=== PATIENT | male | born 1965 | race Caucasian/White ===

== ENCOUNTER 2023-03-01 07:14 | Outpatient (REF) | payer OTHER, SELFPAY ==
[2023-03-01 11:10] LABS: MANUAL DIFF FLAG NO
[2023-03-01 11:34] LABS: Basophils Absolute Auto 0.1 X10*3/uL (0.0-0.2); Basophils Percent Auto 1.4 % (0-2); Eosinophils Absolute Auto 0.1 X10*3/uL (0.0-0.4); Eosinophils Percent Auto 2.1 % (0-4); Hematocrit 42.1 % (42.0-52.0); Hemoglobin 13.7 g/dl (14.0-18.0); Imm Gran Abs Auto 0.03 X10*3/uL (0.00-0.03); Imm Gran Pct Auto 0.5 % (0.0-0.4); Lymphocytes Absolute Auto 2.1 X10*3/uL (1.2-4.9); Lymphocytes Percent Auto 36.1 % (20-40); Mean Corpuscular HGB Conc 32.5 g/dl (31.0-36.0); Mean Corpuscular Hemoglobin 29.2 pg (27.0-33.0); Mean Corpuscular Volume 89.8 fL (80.0-98.0); Mean Platelet Volume 10.4 fL (9.4-12.4); Monocytes Absolute Auto 0.6 X10*3/uL (0.1-1.2); Monocytes Percent Auto 10.7 % (2-11); Neutrophils Absolute Auto 2.8 x10*3/uL (2.0-8.3); Neutrophils Percent Auto 49.2 % (45-73); Platelet Count 172 X10*3/uL (160-400); Red Blood Count 4.69 X10*6/uL (4.60-5.80); Red Cell Distribution Width 11.9 % (11.0-16.0); White Blood Count 5.7 X10*3/uL (4.8-10.8)
[2023-03-01 11:51] LABS: Appearance Urine Clear; Color Urine Yellow; Glucose Urine UA Negative (Negative); Leukocyte Esterase Urine Negative (Negative); Nitrite Urine Negative (Negative); PH 5.5 (5.0-9.0); Urine Blood Negative (Negative); Urine Ketones Negative (Negative); Urine Protein Negative (Neg-Trace)
[2023-03-01 12:18] LABS: Alanine Aminotransferase 29 U/L (0-40); Albumin Level 4.1 g/dL (3.5-5.0); Alkaline Phosphatase 47 U/L (39-117); Anion Gap 9 (12-20); Aspartate Amino Transferase 23 U/L (5-37); Bilirubin Total 0.8 mg/dL (0.0-1.0); Blood Urea Nitrogen 16 mg/dL (9-16); Calcium 9.5 mg/dL (8.4-10.2); Carbon Dioxide 28 mmol/L (22-29); Chloride 108 mmol/L (96-108); Cholesterol 221 mg/dL; Estimated Glomerular Filt Rate > 60; Glucose Fasting 92 mg/dL (60-99); HDL Cholesterol 56 mg/dL; LDL Cholesterol Calculated 136 mg/dl; Potassium 4.1 mmol/L (3.3-5.1); Sodium 141 mmol/L (135-145); TSH reflex Free T4 2.12 uIU/mL (0.32-4.0); Total Protein 6.8 g/dL (6.5-8.0); Triglycerides 148 mg/dL
[2023-03-01 12:21] LABS: Prostate Specific Antigen Scr 0.55 ng/mL (<0.05-4.0)
[2023-03-01 12:37] LABS: Creatinine Urine 149.47 mg/dL
[2023-03-09 16:08] LABS: Testosterone, Total 262 ng/dL (250-1100)
== END 2023-03-01 07:15 | disposition home or self-care (01) ==
LOC: HO.WFDLDS 07:14
PROVIDERS: Visit Provider Family Medicine
DX: Z00.00 Encounter for general adult medical examination without abnormal findings (principal); Z12.5 Encounter for screening for malignant neoplasm of prostate; R68.82 Decreased libido; R79.89 Other specified abnormal findings of blood chemistry; I10 Essential (primary) hypertension
CPT/HCPCS: 36415; 80053; 80061; 81003; 82043; 84153; 84402; 84403; 84443; 85025

== ENCOUNTER 2023-04-12 14:21 | Outpatient (AMB) | payer OTHER, SELFPAY ==
--- NOTE | 2023-04-12 14:26 | A.OFFVIS_ITS ---
Intake Vital Signs 04/12/23 14:28 Height 5 ft 11 in Weight 211 lb 10.3 oz BMI 29.5 BP 112/62 Blood Pressure Location Lt brachial Position Sitting Pulse 83 Intake Visit Reasons: GERD, Colonoscopy Screening Intake Note: Ryland presents in the office as a new patient for GERD and colo screening. CC: Alternates through pepcid and omeprazole with occasional tums PRN. He gets acid reflux and it seems to be managed with his medications. [place] Required: No Allergies No Known Allergies [No Known Allergies*] Allergy (Unverified 02/15/23 15:12) Medication List - Last Reconciled 04/12/23 by Cathy Mcneil PA-C famotidine (Acid Felting Machine Operator Helper (famotidine)) 20 mg PO DAILY omeprazole 20 mg PO DAILY HPI HPI Comments History of Present Illness Details A 58 y/o male mother colon cancer @ 42 colonoscopy Q 5 years PPI and H2 kasey for GERD-years of combo tx- takes Tums a s well- at times- break through- Appetite good Bowels- ok- No cardiac or respiratory issues no N/V/D- abdominal pain PFSH Medical History GERD (gastroesophageal reflux disease) Pericarditis Right shoulder pain Surgical History History of orchiectomy Hx of colonoscopy Hx of tonsillectomy Family History Mother Colon cancer Maternal Aunt Celiac disease Other Other psychoactive substance abuse with psychoactive substance-induced mood disorder Social History Housing: House Patient Tobacco Use Status: Former Tobacco user e-Cigarette/Vaping Use: Never Used service: No Current occupational status: employed 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 Cognitive needs: No Hearing needs: No Vision needs: No Review of Systems Const All systems reviewed & are unremarkable except as noted in HPI and below Card Denies chest pain and Denies dyspnea Resp Denies dyspnea GI Denies abdominal pain, Denies hematochezia, Reports heartburn, Denies nausea and Denies vomiting Physical Exam Vital Signs: Last Vital Signs Pulse 83 04/12/23 14:28 BP 112/62 04/12/23 14:28 BMI result Body Mass Index 29.5 Const General: cooperative, healthy appearing and comfortable Orientation/consciousness: patient oriented x3 Limitations: no limitations Eyes Sclerae: sclerae normal Resp Effort & Inspection: normal respiratory effort and able to speak in complete sentences Auscultation: clear to auscultation bilaterally, no rales, no rhonchi and no wheezes Cardio Rate: regular rate Rhythm: regular rhythm Heart sounds: S1 normal heart sound present and S2 normal heart sound present GI Palpation (GI): Soft to palpation and nontender Auscultation: normal bowel sounds Skin General skin exam: no rashes or lesions noted Neuro General: patient oriented x3 Extrem General: Yes full ROM Psych Appearance: grossly normal and well kempt Mental Status: mental status grossly normal Speech and movement: Normal speech and movement present and Clear speech present Affect: normal affect Attitude: cooperative Thought process: Normal thought process present Thought content: Normal thought content present Insight: Good insight present (Psych) Judgement: Good judgement present (Psych) Assessment & Plan Assessment & Plan (1) Family history of colon cancer: Comment: Mother @ 42 Code(s): Z80.0 - Family history of malignant neoplasm of digestive organs (2) History of colon polyps: Comment: hx polyps- new to [facility] [place] Code(s): Z86.010 - Personal history of colonic polyps Plan: EGD/ colon (3) GERD (gastroesophageal reflux disease): Comment: persistent GERD- Recommend- Barretts surveillance-r/o PUD/ non ulcerdyspepsia- esophagitis- Code(s): K21.9 - Gastro-esophageal reflux disease without esophagitis Plan: EGD- Plan EGD/ colon- MG split prep Orders: Orders EGD/[place] Combo - GI Use Only Today K21.9 - Gastro-esophageal reflux disease without esophagitis, Z80.0 - Family history of malignant neoplasm of digestive organs, Z86.010 - Personal history of colonic polyps Medications: New bisacodyl (Dulcolax (bisacodyl)) Take 4 tablets by mouth at 12:00pm the day before your procedure. 20 mg (4 x 5 mg) PO ONCE 1 day 4 tabs 0RF colonoscopy prep Z12.11 - Encounter for screening for malignant neoplasm of colon polyethylene glycol 3350 (Miralax) Take as directed by mouth the day before your procedure. 238 grams PO ONCE 1 day PRN 238 grams 0RF laxative effect Patient Instructions: A 58 y/o male - agress to EGD/ colonoscopy- MG split prep Continue ppi/ H2 kasey Reflux precautions- reviewed Call with questions or concerns Appreciate the opportunity to assist in the care. Coding Level of Care Code New Pt Level 3 (57692) Diagnoses Family history of colon cancer Z80.0 History of colon polyps Z86.010 GERD (gastroesophageal reflux disease) K21.9 Time Spent (min) 25
[2023-04-12 14:28] VITALS: BP 112/62; PULSE 83; BMI 29.5
== END 2023-04-12 15:16 | disposition home or self-care (01) ==
PROVIDERS: PCP Family Medicine; Visit Provider Physician Assistant
DX: Z80.0 Family history of malignant neoplasm of digestive organs (principal); Z86.010 Personal history of colon polyps; K21.9 Gastro-esophageal reflux disease without esophagitis
CPT/HCPCS: 99203

== ENCOUNTER → 2023-04-12 14:21 | Outpatient (BNVA) | payer OTHER, SELFPAY | PROVIDERS: PCP Family Medicine; Visit Provider Physician Assistant ==

== ENCOUNTER 2023-05-03 13:51 | Outpatient (AMB) | payer OTHER, SELFPAY ==
[2023-05-03 13:57] VITALS: BP 112/68; PULSE 84; RESP 13; TEMP 37.1; O2SAT 98; BMI 30.3
--- NOTE | 2023-05-03 13:57 | A.OFFPC_ITS ---
Vital Signs 05/03/23 13:57 Height 5 ft 11 in Weight 217 lb BMI 30.3 BP 112/68 Blood Pressure Location Lt brachial Position Sitting Respiration 13 Pulse 84 Pulse Source Pulse Oximeter Temp 98.7 F Temp Source Temporal Artery Scan Pulse Oximetry (%) 98 Oxygen Delivery Method Room Air Intake Visit Reasons: CPE with f/u labs and health maintenance Intake Note: Patient reports he has no concerns. 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 Labs were drawn at 03/01/23. Reviewed labs with pt. Mildly low Hgb at 13.7. Triglycerides 148. TC 221. LDL 136. HDL 56. Hx of orchiectomy and pt reports he has been concerned about fatigue. Pt reports hearing changes L ear. Pt reports hx of smoking. He also reports he has a hx of TB exposure. Pt reports he does get occasional rashes. 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 Cognitive needs: No Hearing needs: No Vision needs: No Review of Systems Const Denies chills, Denies fatigue, Denies fever(s), Denies headache(s) and Denies weakness Eyes Denies change in vision ENT Denies dizziness, Denies headache(s), Denies hearing loss, Denies nasal congestion, Denies sinus pain, Denies sinus pressure and Denies sore throat Card Denies chest pain, Denies lightheadedness, Denies dyspnea and Denies other (palpitations) Resp Denies cough, Denies dyspnea and Denies wheezing GI Denies abdominal pain, Denies melena, Denies hematochezia, Denies change in bowel habits, Denies dyspepsia and Denies nausea Denies hematuria and Denies dysuria Musc Denies abnormal gait, Denies myalgias, Denies arthralgias, Denies numbness and Denies tingling Skin/Breast Reports rash, Denies unusual bruising and Denies wounds Neuro Denies abnormal gait, Denies dizziness, Denies headache(s), Denies memory loss, Denies numbness, Denies Sensory deficit (Neuro), Denies tingling and Denies weakness Psych Denies anxiety, Denies depression and Denies memory loss Endo Denies cold intolerance, Denies fatigue, Denies heat intolerance, Denies polydipsia and Denies polyuria Matias/Lymph Denies easy bleeding and Denies easy bruising Aller/Immun Denies wheezing Physical exam (Primary Care) Vital Signs: Last Vital Signs Temp 98.7 F 05/03/23 13:57 Pulse 84 05/03/23 13:57 Resp 13 05/03/23 13:57 BP 112/68 05/03/23 13:57 Pulse Ox 98 05/03/23 13:57 Oxygen Delivery Method Room Air 05/03/23 13:57 BMI result Body Mass Index 30.3 Tobacco/Smoking Status: Tobacco use Status Tobacco use date assessed 02/15/23 05/03/23 13:59 Patient Tobacco Use Status Former Tobacco user 05/03/23 13:59 e-Cigarette/Vaping Use Never Used 05/03/23 13:59 Const General: no acute distress, well developed, alert and awake Nutritional Appearance: well nourished Orientation/consciousness: patient oriented x3 HENMT Head: Yes normocephalic and Yes atraumatic Ears: hearing grossly normal bilaterally and TM's normal bilaterally General nose exam: Normal external nose present and Normal nares present Mouth: Normal oral and palatal mucosa present and moist mucous membranes Teeth and gingiva: dentition normal Throat: Yes posterior oropharynx normal Eyes General: appearance normal, both eyes and all related structures Pupils: Equal, round and reactive pupils present and Pupil accommodation reflex normal EOM: EOMs intact bilaterally Neck Neck: Yes normal visual inspection, Yes no lymphadenopathy and Yes trachea midline Thyroid: Thyroid normal Carotids: no bruits Lymphatic: no lymphadenopathy noted Chest Chest palpation & inspection: normal inspection of the chest Resp Other: Clear but coarse breath sounds Effort & Inspection: normal respiratory effort Auscultation: clear to auscultation bilaterally Cardio Rate: regular rate Rhythm: regular rhythm Heart sounds: S1 normal heart sound present, S2 normal heart sound present, no gallops, no murmurs and no rubs Bruits: no abdominal aortic bruits and no carotid bruits GI Palpation (GI): No Abdominal aortic bruit present, Soft to palpation, nontender, No hepatosplenomegaly present and No Rebound tenderness present Auscultation: normal bowel sounds General: Yes no CVA tenderness Back/Spine/Pelvis Back: no CVA tenderness Cervical Spine: cervical ROM normal and No Cervical spine tenderness Thoracic/Lumbar Spine: thoraco-lumbar ROM normal, No pain with thoraco-lumbar ROM, No thoracic spinal tenderness and No lumbar spinal tenderness Skin Lesions: no lesions Rashes: no rashes Trauma: no lacerations or abrasions Wounds: no wounds Nails: normal Neuro General: patient oriented x3 Cranial nerves: Yes Equal, round and reactive pupils present Cognition (Neuro): normal cognition Gait exam (Neuro): Normal gait present Motor exam (neuro): 5/5 motor strength present throughout Sensory Exam: No Sensory deficit (Neuro) Deep tendon reflexes (DTR's): Right patellar reflex intensity grade: 2+ and Left patellar reflex intensity grade: 2+ Extrem General: Yes normal to inspection and No edema Psych Appearance: grossly normal Affect: normal affect Attitude: cooperative Thought process: Normal thought process present Assessment and Plan Assessment & Plan (1) Adult general medical exam: Code(s): Z00.00 - Encounter for general adult medical examination without abnormal findings Plan: 58-year-old male presents for complete physical exam Encouraged healthy diet with active lifestyle and plenty of exercise (2) Elevated LDL cholesterol level: Code(s): E78.00 - Pure hypercholesterolemia, unspecified Plan: Mildly elevated LDL cholesterol but HDL ratios are good Encouraged a diet lower in saturated fats and cholesterol No medication needed at this time (3) Borderline anemia: Code(s): D64.9 - Anemia, unspecified Plan: Improved from prior lab work He had had complaints fatigue and I do not feel that this would explain any fatigue. We can follow (4) Sleep apnea: Code(s): G47.30 - Sleep apnea, unspecified Plan: Patient notes daytime sleepiness/fatigue and snoring/gasping with apneic events witnessed by his Referred to Sleep Medicine (5) Fatigue: Code(s): R53.83 - Other fatigue Plan: This is likely due to poor sleep and sleep apnea He is referred to Sleep Medicine (6) Unilateral hearing loss: Code(s): H91.90 - Unspecified hearing loss, unspecified ear Plan: Mild decrease and hearing at left ear Declines audiology testing for now He will let me know if he has any changes (7) History of smoking: Code(s): Z87.891 - Personal history of nicotine dependence Plan: Distant history. No longer smoking (8) History of latent tuberculosis: Code(s): Z86.15 - Personal history of latent tuberculosis infection Plan: History of latent tuberculosis and treatment was completed. Will check chest x-ray He had also had a COVID infection and has coarse breath sounds, possible scarring. As above, checking chest x-ray (9) Screening for prostate cancer: Code(s): Z12.5 - Encounter for screening for malignant neoplasm of prostate Plan: PSA was within normal limits (10) Encounter for screening for malignant neoplasm of colon: Code(s): Z12.11 - Encounter for screening for malignant neoplasm of colon Plan: He has seen gastroenterology but has not heard back from them yet for procedure Asked him to call Gastroenterology again (11) Rash: Code(s): R21 - Rash and other nonspecific skin eruption Plan: Patient notes that he gets an intermittent rash which lasts only minutes to hours No current rash Asked him to take pictures of this rash and also try to come in during flare up of rash. Also suggested symptoms diary Orders: Orders XR chest 2V Today Z86.15 - Personal history of latent tuberculosis infection, Z87.891 - Personal history of nicotine dependence Referrals Sleep Medicine Referral G47.30 - Sleep apnea, unspecified, R53.83 - Other fatigue Coding Level of Care Code Est Pt Level 3 (62175) Est Pt Prev Care 40-64y(30559) Diagnoses Adult general medical exam Z00.00 Elevated LDL cholesterol level E78.00 Borderline anemia D64.9 Sleep apnea G47.30 Fatigue R53.83 Unilateral hearing loss H91.90 History of smoking Z87.891 History of latent tuberculosis Z86.15 Screening for prostate cancer Z12.5 Encounter for screening for malignant neoplasm of colon Z12.11 Rash R21
== END 2023-05-03 14:58 | disposition home or self-care (01) ==
PROVIDERS: PCP Family Medicine; Visit Provider Family Medicine
DX: Z00.00 Encounter for general adult medical examination without abnormal findings (principal); E78.00 Pure hypercholesterolemia, unspecified; D64.9 Anemia, unspecified; Z87.891 Personal history of nicotine dependence; G47.30 Sleep apnea, unspecified; R53.83 Other fatigue; H91.92 Unspecified hearing loss, left ear; R21 Rash and other nonspecific skin eruption
CPT/HCPCS: 99396

== ENCOUNTER 2023-06-05 15:31 | Outpatient (REF) | payer OTHER, SELFPAY ==
--- NOTE | ~2023-06-05 | XR_ITS ---
EXAMINATION: XR CHEST CLINICAL INFORMATION: Reason for Exam Z86.15 - Personal history of latent tuberculosis infection COMPARISON: Chest radiograph 06/17/2020 TECHNIQUE: 2 views of the chest FINDINGS: Lines and tubes: None. Clear lungs. No pleural effusion. No pneumothorax. Normal cardiomediastinal silhouette. XR/XR chest 2V IMPRESSION: * Clear lungs.
== END 2023-06-05 15:32 | disposition home or self-care (01) ==
LOC: HO.XRAY 15:31
PROVIDERS: PCP Family Medicine; Visit Provider Family Medicine
DX: Z86.15 Personal history of latent tuberculosis infection (principal); Z87.891 Personal history of nicotine dependence
CPT/HCPCS: 71046

== ENCOUNTER 2023-06-12 14:41 | Outpatient (AMB) | payer OTHER, SELFPAY ==
--- NOTE | 2023-06-12 14:39 | MHC.PC.OV ---
Intake Visit Reasons: f/u CPE-labs Intake Note: Patient is ready for his telehealth appointment. Officer Captain Required: No Accompanied by: Self / Same As Patient Allergies No Known Allergies [No Known Allergies*] Allergy (Verified 06/12/23 14:41) Tobacco use date assessed: 02/15/23 HPI f/u CPE-labs HPI Details 58 y/o male presents to f/u chest x-ray. Distant history of smoking but more recent history of latent TB infection and completed treatment. More recently still, he had a COVID infection with some ongoing symptoms and coarse breath sounds. Chest x-ray 06/05/23 was normal. He has a colonoscopy scheduled in June. Pt reports R shoulder pain and states he has recently exacerbated pain by raking. 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 Cognitive needs: No Hearing needs: No Vision needs: No Review of Systems Const Denies chills, Denies fatigue, Denies fever(s), Denies headache(s) and Denies weakness ENT Denies dizziness and Denies headache(s) Card Denies dyspnea Resp Denies cough, Denies dyspnea, Denies wheezing and Denies other (shortness of breath) Musc Denies numbness and Denies tingling Neuro Denies dizziness, Denies headache(s), Denies numbness, Denies tingling and Denies weakness Psych Denies anxiety and Denies depression Endo Denies fatigue Aller/Immun Denies wheezing Physical exam (Primary Care) Tobacco/Smoking Status: Tobacco use Status Tobacco use date assessed 02/15/23 06/12/23 14:41 Patient Tobacco Use Status Former Tobacco user 06/12/23 14:41 e-Cigarette/Vaping Use Never Used 06/12/23 14:41 Telehealth Telehealth Location of provider rendering services: practice address Location of patient: address on file Patient Identification confirmed using: Name, : Yes Telehealth method: voice only Patient verbally consented to treatment: Yes Patient verbally consented to billing insurance company: Yes Patient informed of any privacy concerns related to visit: Yes Minutes spent on Phone/Video with Pt.: 12 Assessment and Plan Assessment & Plan (1) History of latent tuberculosis: Code(s): Z86.15 - Personal history of latent tuberculosis infection Plan: History?of?tuberculosis?and?fairly?recent?COVID?infection.??Patient?had?had?coarse?breath?sounds?on?exam Chest?x-ray?clear.??Patient?is?breathing?well. (2) History of smoking: Code(s): Z87.891 - Personal history of nicotine dependence Plan: As?above,?chest?x-ray?is?clear (3) Right shoulder pain: Code(s): M25.511 - Pain in right shoulder Plan: Moderately?severe?right?shoulder?pain. Patient?requests?referral?to?Ortho?which?is?made. (4) Sleep apnea: Code(s): G47.30 - Sleep apnea, unspecified Plan: Patient?is?concerned?about?the?cost?of?his?appointments?and?would?like?to?reschedule?for?after?August. He?will?call?neuro?to?reschedule?his?sleep?medicine?studies I?advised?him?to?sleep?on?his?side?and?let?me?know?if?things?are?worsening (5) GERD (gastroesophageal reflux disease): Comment: persistent GERD- Recommend- Barretts surveillance-r/o PUD/ non ulcerdyspepsia- esophagitis- Code(s): K21.9 - Gastro-esophageal reflux disease without esophagitis Plan: He?has?endoscopies?scheduled?with?GI?but?is?having?difficulty?getting?this?paid?for?by?his?insurance.??He?will?reschedule?this?to?after?August?. Orders: Referrals Orthopedics Referral M25.511 - Pain in right shoulder Medications: New meloxicam 15 mg PO DAILY 30 tabs 2RF 30 days Coding Level of Care Code Tele Est Pt Level 2 (87773) Diagnoses History of latent tuberculosis Z86.15 History of smoking Z87.891 Right shoulder pain M25.511 Sleep apnea G47.30 GERD (gastroesophageal reflux disease) K21.9
== END 2023-06-12 14:45 | disposition home or self-care (01) ==
PROVIDERS: PCP Family Medicine; Visit Provider Family Medicine
DX: Z86.15 Personal history of latent tuberculosis infection (principal); Z87.891 Personal history of nicotine dependence; M25.511 Pain in right shoulder; G47.30 Sleep apnea, unspecified; K21.9 Gastro-esophageal reflux disease without esophagitis
CPT/HCPCS: 99442

== ENCOUNTER 2023-06-28 08:54 | Outpatient (AMB) | payer OTHER, SELFPAY ==
--- NOTE | 2023-06-28 08:56 | MHC.OFFVIS ---
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 The patient states that he has had intermittent pain in his right shoulder for the last several years. 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 He also played a fair amount of softball when he was younger. He 1st aggravated his right shoulder approximately 20 years ago while jumping on a trampoline with his 2-year-old daughter. He reports mild weakness when lifting his right hand above shoulder height. Allergies No Known Allergies [No Known Allergies*] Allergy (Verified 06/12/23 14:41) Medication List - Last Reconciled 06/28/23 by Grant Lebron MD bisacodyl (Dulcolax (bisacodyl)) 20 mg (4 x 5 mg) PO ONCE 1 day famotidine (Acid Physical Chemistry Teacher (famotidine)) 20 mg PO DAILY meloxicam 15 mg PO DAILY 30 days omeprazole 20 mg PO DAILY polyethylene glycol 3350 (Miralax) 238 grams PO ONCE PRN 1 day PFS Medical History GERD (gastroesophageal reflux disease) Pericarditis Right shoulder pain Surgical History History of orchiectomy Hx of colonoscopy Hx of tonsillectomy Family History Mother Colon cancer Maternal Aunt Celiac disease Other Other psychoactive substance abuse with psychoactive substance-induced mood disorder Social History Housing: House Patient Tobacco Use Status: Former Tobacco user e-Cigarette/Vaping Use: Never Used service: No Current occupational status: employed 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 Cognitive needs: No Hearing needs: No Vision needs: No Physical Exam Const Other: Well-nourished well-developed very friendly male awake alert and oriented x3 in no acute distress Extrem Other: Bilateral upper extremity examination shows good capillary refill, no skin lesions noted, normal sensation light touch Right shoulder examination shows decreased range of motion when compared to his left shoulder, 4/5 strength with supraspinatus testing, positive impingement signs, tenderness over his acromioclavicular joint, no instability Results Reviewed Results Reviewed: X-rays of the patient's right shoulder show severe acromioclavicular joint narrowing, a type 2 acromion, no acute bony abnormalities Assessment & Plan Assessment & Plan (1) Right shoulder pain: Code(s): M25.511 - Pain in right shoulder Plan: Mr. Lynch presents with complaints of progressively worsening right shoulder pain. (2) Impingement of right shoulder: Code(s): M25.811 - Other specified joint disorders, right shoulder Plan Mr. Lynch presents with right shoulder pain due to impingement syndrome and rotator cuff tendinosis. I had a lengthy discussion with the patient regarding the treatment options. We will hold off on an MRI or cortisone injection for now. I did give him a prescription to go to formal physical therapy where he works at [employer]. The do's and don'ts of lifting were discussed at length with the patient. He will follow up with me on an as-needed basis should his symptoms not plateau at an unacceptable level over the next few months. If his weakness does worsen in the future I will order an MRI to evaluate the status of his rotator cuff tendons. Feel free to call me at any time should questions regarding his orthopedic management arise. I spent 22 minutes in reviewing the patient's records and imaging studies, seeing the patient and documenting in the medical record. Orders: Orders XR shoulder RT min 2V Today M25.511 - Pain in right shoulder PT Evaluation and Treatment Today M25.811 - Other specified joint disorders, right shoulder Coding Level of Care Code New Pt Level 2 (72136) Diagnoses Right shoulder pain M25.511 Impingement of right shoulder M25.811
== END 2023-06-28 09:28 | disposition home or self-care (01) ==
PROVIDERS: PCP Family Medicine; Visit Provider Orthopaedic Surgery
DX: M25.511 Pain in right shoulder (principal); M25.811 Other specified joint disorders, right shoulder
CPT/HCPCS: 99202

== ENCOUNTER 2023-06-28 11:53 | Outpatient (REF) | payer OTHER, SELFPAY ==
--- NOTE | ~2023-06-28 | XR_ITS ---
EXAMINATION: XR SHOULDER, RIGHT CLINICAL INFORMATION: Pain right shoulder COMPARISON: None available. TECHNIQUE: AP and transscapular Y views of the right shoulder. FINDINGS: Mild degenerative changes in the acromioclavicular joint with joint space narrowing and hypertrophic change. Degenerative changes with hypertrophic change along the glenoid. No abnormal soft tissue calcifications identified adjacent to the humeral head. Glenohumeral alignment is maintained. XR/XR shoulder RT min 2V IMPRESSION: Mild degenerative changes in the acromioclavicular joint.
== END 2023-06-28 11:54 | disposition home or self-care (01) ==
LOC: HO.HOSX 11:53
PROVIDERS: Visit Provider Orthopaedic Surgery
DX: M25.811 Other specified joint disorders, right shoulder (principal)
CPT/HCPCS: 73030

== ENCOUNTER 2023-08-30 07:32 | Day surgery (SDC) | payer OTHER, SELFPAY ==
[2023-08-27 14:43] VITALS: BMI 29.4
--- NOTE | 2023-08-29 09:03 | P.CONAN_ITS ---
Documented by User: Lula Kong NP 08/29/23 09:05 HPI - Anesthesia Eval Consult details Narrative: 58yo M for Upper Endoscopy and Colonoscopy PMF Active Problems Active Problems: All Active Problems (Updated 08/27/23 @ 14:41 by Ritu Bustillos RN) Impingement of right shoulder (Acute) Right shoulder pain (Acute) Rash (Acute) History of latent tuberculosis (Acute) Exposure to TB (Acute) History of smoking (Acute) Unilateral hearing loss (Acute) Sleep apnea (Acute) Fatigue (Acute) Borderline anemia (Acute) Screening for prostate cancer (Acute) Encounter for screening for malignant neoplasm of colon (Acute) Adult general medical exam (Acute) Elevated LDL cholesterol level (Acute) Family history of colon cancer (Acute) Low testosterone (Acute) Low libido (Acute) History of colon polyps (Acute) Laboratory exam ordered as part of routine general medical examination (Acute) Right shoulder pain (Acute) GERD (gastroesophageal reflux disease) (Acute) Past Medical History Medical History Borderline anemia Latent tuberculosis COVID-19 Sleep apnea Right shoulder pain GERD (gastroesophageal reflux disease) Family History Family History Mother Colon cancer Maternal Aunt Celiac disease Other Other psychoactive substance abuse with psychoactive substance-induced mood disorder Surgical History Surgical History History of esophagogastroduodenoscopy (EGD) Hx of colonoscopy History of orchiectomy Hx of tonsillectomy Social History Social History Housing: House Patient Tobacco Use Status: Former Tobacco user Quit Date: very young e-Cigarette/Vaping Use: Never Used Use of substances other than those prescribed or required for medical reasons: No Are you DNR?: No Advance Directives: No Advance Directives Information Provided: Yes service: No Current occupational status: employed 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 Clear lungs. No pleural effusion. No pneumothorax. Normal cardiomediastinal silhouette. Assessment and Plan Assessment Anesthesia Assessment: Chart Reviewed Documented by User: Tara Landis MD 08/30/23 09:09 PMFSH Past Medical History Medical History Borderline anemia Latent tuberculosis COVID-19 Sleep apnea Right shoulder pain GERD (gastroesophageal reflux disease) Family History Family History Mother Colon cancer Maternal Aunt Celiac disease Other Other psychoactive substance abuse with psychoactive substance-induced mood disorder Surgical History Surgical History History of esophagogastroduodenoscopy (EGD) Hx of colonoscopy History of orchiectomy Hx of tonsillectomy History of Problems with Anesthesia: No Social History Social History Housing: House Patient Tobacco Use Status: Former Tobacco user Quit Date: very young e-Cigarette/Vaping Use: Never Used Use of substances other than those prescribed or required for medical reasons: No Are you DNR?: No Advance Directives: No Advance Directives Information Provided: Yes service: No Current occupational status: employed 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 Cognitive needs: No Hearing needs: No Vision needs: No Meds Allergies Allergy/AdvReac Type Severity Reaction Status Date / Time No Known Allergies Allergy Verified 08/30/23 08:04 [No Known Allergies*] Home Medications Medication Instructions Recorded Confirmed Last Taken Type famotidine 20 mg tablet (Acid 20 mg PO DAILY 02/15/23 08/27/23 Unknown History Forming And Assembling Supervisor (famotidine)) omeprazole 20 mg capsule,delayed 20 mg PO DAILY 02/15/23 08/27/23 Unknown History release meloxicam 15 mg tablet 15 mg PO DAILY PRN Pain 08/30/23 Unknown History Exam Airway Mallampati Class: III TM Dist: >3cm Neck ROM: Full Loose/Missing/Broken Teeth: Yes, Upper and Lower Heart: RRR Lungs: CTA Assessment and Plan Assessment Anesthesia Assessment: Anesthesia Plan Discussed Final Anesthetic Review History of Problems with Anesthesia: No NPO: Yes ASA Class: III Final Preanesthetic Review: Meds/Allgs Chart Reviewed, Consent Obtained/Reviewed and Anes Risks/Benef Reviewed Patient Risk: Intermediate Procedure Risk: Intermediate Anesthetic Plan Anesthetic Plan: MAC: Disposition: Standard PACU
[2023-08-30 08:06] VITALS: BMI 30.5
[2023-08-30 08:11] VITALS: BP 118/78; PULSE 74; RESP 15; TEMP 36.6; O2SAT 96
[2023-08-30] MEDS: Lactated Ringers 1,000 ML 100 ML IVCONT (08:35)
--- NOTE | 2023-08-30 08:47 | MHC.SHP ---
Pre-Procedural Eval Section A Date of Service: 08/30/23 Section B Chief Complaint: Gastro-esophageal reflux disease without esophagit Details of Present Illness: Fh of CRC Relevant Family History (Specify if Yes): Yes Relevant Social History: None Present Medications: see Short Stay Collaborative assessment Medical History: Significant History (GERD (gastroesophageal reflux disease) Pericarditis Right shoulder pain) History of Previous Operations: Relevant previous surgery/procedure and date(s) (history of orchiectomy Hx of colonoscopy Hx of tonsillectomy) Allergies: Allergies Allergy/AdvReac Type Severity Reaction Status Date / Time No Known Allergies Allergy Verified 08/30/23 08:04 [No Known Allergies*] Review of Systems Sugical H&P ROS: Negative: Constitution, Cardiovascular, Respiratory, Neurological, Psychiatric, Hem-Onc, Allergic/Immunologic, Gastrointestinal, Genitourinary, Musculoskeletal, Integumentary, Endocrine and Eyes/Ears/Nose/Throat Exam Surgical H&P Exam: Normal: HEENT, Normal: Heart, Normal: Lungs, Normal: Extremities, Normal: Abdomen, Normal: Skin and Normal: Neurological Plan Diagnosis/Plan: Unchanged I have reviewed the history and physical and performed a pertinent physical examination on my patient. No changes have occurred unless specified. Time Spent With Patient Time: Total time managing care of this patient today ____ minutes.
--- NOTE | 2023-08-30 09:01 | P.OP_ITS ---
Operative Note Operative Note Date of Service: 08/30/23 Narrative: Operative Information Procedure Description: EGD, Colonoscopy Indication: GERD, colon screening-FH of CRC Anesthesia: MAC FLEXIBLE TRANSORAL UPPER GASTROINTESTINAL ENDOSCOPY AND COLONOSCOPY PROCEDURE NOTE UPPER ENDOSCOPY Consent: Indications for the procedure and potential complications of bleeding, perforation, reaction to medications and missed diagnosis were discussed with the patient and informed consent was obtained. Instrument: Olympus GIF H 190 J mid size upper endoscope Monitoring: Vital signs and clinical assessment, continuous EKG monitoring, Pulse oximetry, Carbon Dioxide monitoring and blood pressure monitoring were done throughout the procedure. Procedure: The patient was placed in the left lateral decubitis position and pre-procedure medications were administered and a bite block was placed. The endoscope was inserted into the mouth and advanced under direct vision to the third part of duodenum. A careful inspection was made as the upper endoscope was withdrawn including a retroflexed examination of the proximal stomach; Findings and interventions are described below. Findings: Larynx:normal Esophagus: GE junction at 40 cm, diaphragm hiatus at 43 cm, sliding hiatal hernia, with abn edematous mucosa, and erythema, friability at the GEJ with linear erosions and possible barretts esophagus. The LES was very lax, after passing the scope there was an area of continuous oozing and a clip was applied, Bx were taken from GEJ, distal and proximal esophagus. Small inlet patch was noted. Stomach: Slight swelling and erythema at antrum. Biopsies were obtained. Grade 2 flap valve on retroflexed examination of the cardia. Duodenum: Normal bulb and descending duodenum, Intervention: Biopsies as noted above, Brushings, clip placement COLONOSCOPY Instrument: Olympus variable stiffness pediatric scope 190L Colonoscopy Monitoring: Vital signs and clinical assessment, continuous EKG monitoring, Pulse oximetry, Carbon Dioxide monitoring and blood pressure monitoring were done throughout the procedure. Colon withdrawal time was 18 minutes. Procedure: The patient was placed in the left lateral decubitis position and pre-procedure medications were administered. After a digital rectal examination of the ano-rectum, the video colonoscope was inserted into the rectum and advanced through the colon to the cecum/TI. The colonoscope was slowly withdrawn in a retrograde panoramic fashion and the colon mucosa was carefully examined including a retroflexed view of the rectum. Findings and interventions are described below. Procedure Difficulty: easy Findings: Terminal Ileum-normal Cecum:normal Right sided retroflexion: 8-10 mm sessile polyp noted and removed with cold snare Ascending Colon: normal Transverse Colon -normal Descending Colon:normal Sigmoid Colon:moderate diverticulosis, 10-12 mm sessile polyp removed with cold snare Rectum: Retroflexion with small internal hemorrhoids, grade I Anorectum - normal Colon preparation: [place] Bowel Preparation Scale Right colon; 2 Transverse colon: 3 Left colon; 3 (0 = Unprepared colon segment with mucosa not seen due to solid stool that cannot be cleared. 1 = Portion of mucosa of the colon segment seen, but other areas of the colon segment not well seen due to staining, residual stool and/or opaque liquid. 2 = Minor amount of residual staining, small fragments of stool and/or opaque liquid, but mucosa of colon segment seen well. 3 = Entire mucosa of colon segment seen well with no residual staining, small fragments of stool or opaque liquid) Impression and Post Procedure Diagnosis: Endoscopy Findings: esophagitis lax LES possible Barretts gastritis esophageal inlet patch Colonoscopy Findings: polyps internal hemorrhoids diverticular disease Plan: Await Pathology results Repeat Colonoscopy in 5 years due to polyps or earlier if clinically indicated High fiber diet leaflet avoid straining at stool, epsom salts and sitz bath, anusol supps or cream GERD precautions, PPI compliance, consider increasing dose, avoid nsaids Above findings were reviewed with the patient and relevant handouts were provided if indicated.
[2023-08-30 09:42] VITALS: BP 114/77; PULSE 79; RESP 18; TEMP 36.3; O2SAT 99
[2023-08-30 09:57] VITALS: BP 113/86; PULSE 79; RESP 18; O2SAT 98
[2023-08-30 10:12] VITALS: BP 125/83; PULSE 75; RESP 18; TEMP 36.6; O2SAT 98
== END 2023-08-30 10:50 | disposition home or self-care (01) ==
PROVIDERS: Visit Provider Internal Medicine Gastroenterology
PROC: (CPT 45385; principal; 2023-08-30 09:20)
DX: Z12.11 Encounter for screening for malignant neoplasm of colon (principal); Z80.0 Family history of malignant neoplasm of digestive organs; D12.2 Benign neoplasm of ascending colon; D12.5 Benign neoplasm of sigmoid colon; K57.30 Diverticulosis of large intestine without perforation or abscess without bleeding; K64.0 First degree hemorrhoids; K21.9 Gastro-esophageal reflux disease without esophagitis; K20.80 Other esophagitis without bleeding; K29.50 Unspecified chronic gastritis without bleeding; K44.9 Diaphragmatic hernia without obstruction or gangrene; K22.4 Dyskinesia of esophagus; Q39.8 Other congenital malformations of esophagus
CPT/HCPCS: 45385; 43239; 88305; 88342; J2704

== ENCOUNTER → 2023-08-30 07:32 | Outpatient (BNV) | payer OTHER, SELFPAY | PROVIDERS: Visit Provider Internal Medicine Gastroenterology | DX: Z12.11 Encounter for screening for malignant neoplasm of colon (principal); Z80.0 Family history of malignant neoplasm of digestive organs; D12.5 Benign neoplasm of sigmoid colon; K64.0 First degree hemorrhoids; K21.00 Gastro-esophageal reflux disease with esophagitis, without bleeding; K22.4 Dyskinesia of esophagus; K29.70 Gastritis, unspecified, without bleeding | CPT/HCPCS: 43239; 43255; 45385 ==

== ENCOUNTER 2023-09-05 15:04 | Outpatient (AMB) | payer OTHER, SELFPAY ==
--- NOTE | 2023-09-05 15:06 | A.OFFVIS_ITS ---
Intake Vital Signs 09/05/23 15:09 Height 5 ft 11 in Weight 208 lb BMI 29.0 Intake Visit Reasons: ov- Rt Shoulder pain Intake Note: Ryland is a 58 yr old male presents with complaints of right shoulder pain and weakness. The patient states that he has been going to formal physical therapy which has helped with his range of motion but not his pain. The patient states that he has had intermittent pain in his right shoulder for the last several years. 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 He also played a fair amount of softball when he was younger. He 1st aggravated his right shoulder approximately 20 years ago while jumping on a trampoline with his 2-year-old daughter. He has weakness when lifting his right hand above shoulder height. Allergies No Known Allergies [No Known Allergies*] Allergy (Verified 09/05/23 15:10) Medication List - Last Reconciled 09/05/23 by Grant Lebron MD famotidine (Acid Car Washer (famotidine)) 20 mg PO DAILY meloxicam 15 mg PO DAILY PRN omeprazole 20 mg PO DAILY PFSH Medical History Borderline anemia Latent tuberculosis COVID-19 Sleep apnea Right shoulder pain GERD (gastroesophageal reflux disease) Surgical History History of esophagogastroduodenoscopy (EGD) Hx of colonoscopy History of orchiectomy Hx of tonsillectomy Family History Mother Colon cancer Maternal Aunt Celiac disease Other Other psychoactive substance abuse with psychoactive substance-induced mood disorder Social History Housing: House Patient Tobacco Use Status: Former Tobacco user Quit Date: very young e-Cigarette/Vaping Use: Never Used service: No Current occupational status: employed 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 Cognitive needs: No Hearing needs: No Vision needs: No Physical Exam Vital Signs: BMI result Body Mass Index 29.0 Const Other: Well-nourished well-developed very friendly male awake alert and oriented x3 in no acute distress Extrem Other: Bilateral upper extremity examination shows good capillary refill, no skin lesions noted, normal sensation light touch Right shoulder examination shows slightly decreased range of motion when compared to his left shoulder, 4+ out of 5 strength with supraspinatus testing, positive impingement signs, tenderness over his acromioclavicular joint, no instability Results Reviewed Results Reviewed: X-rays of the patient's right shoulder show severe acromioclavicular joint narrowing, a type 2 acromion, no acute bony abnormalities Assessment & Plan Assessment & Plan (1) Right shoulder pain: Code(s): M25.511 - Pain in right shoulder Plan Mr. Lynch presents with right shoulder pain and weakness due to impingement syndrome well as possible rotator cuff tearing. Thus, I will send the patient for an MRI of his right shoulder to further evaluate the status of his rotator cuff tendons. If he does have a full-thickness tear I will recommend surgical repair to optimize his future functional level. I will see the patient back once the MRI is completed to discuss the findings and treatment options. Feel free to call me at any time should questions regarding his orthopedic management arise. I spent 20 minutes in reviewing the patient's records and imaging studies, seeing the patient and documenting in the medical record. Orders: Orders MR shoulder RT wo con Today M25.511 - Pain in right shoulder Coding Level of Care Code Est Pt Level 2 (74369) Diagnoses Right shoulder pain M25.511
[2023-09-05 15:09] VITALS: BMI 29.0
== END 2023-09-05 15:37 | disposition home or self-care (01) ==
PROVIDERS: PCP Family Medicine; Visit Provider Orthopaedic Surgery
DX: M75.41 Impingement syndrome of right shoulder (principal)
CPT/HCPCS: 99213

== ENCOUNTER → 2023-09-05 15:04 | Outpatient (BNVA) | payer OTHER, SELFPAY | PROVIDERS: PCP Family Medicine; Visit Provider Orthopaedic Surgery ==

== ENCOUNTER 2023-10-05 14:29 | Outpatient (AMB) | payer OTHER, SELFPAY ==
--- NOTE | 2023-10-05 14:30 | A.OFFVIS_ITS ---
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 Wakes up sometimes at night and snores Allergies No Known Allergies [No Known Allergies*] Allergy (Verified 10/05/23 14:34) HPI HPI Comments History of Present Illness Details 58 y/o male patient presents for new in- person visit for sleep consultation. Pt reports loud snoring, witnessed apnea spells. Pt experiences excessive daytime tiredness, fatigue, he can fall asleep very easily. He feels very fatigue usually after work. and it has been more progressed than usual lately. Sleep questionnaire: Have you ever been diagnosed with a sleep disorder? No. Have you ever had a sleep study in the past? No. Have you ever been treated for a sleep disorder? No. Do you take medications for a sleep disorder? Advil and Tylenol PM sometimes for arthritis. Do you snore? Yes. Do you wake up gasping at night? No. Do you have episodes of apneas? No. If yes, are they witnessed? No. Do you have episodes of nocturnal chest pain or dyspnea? No. Do you have difficulty initiating sleep? No. Do you have difficulty maintaining sleep? Yes. Do you wake up tired? Yes. Do you have headaches upon awakening? On occasion. Do you wake up with dry mouth or throat? Yes, sometimes. Do you have GERD? Yes. Do you have nocturia? No. Do you have nocturnal leg cramps? Yes. Do you have symptoms of restless legs? No. Do you act out your dreams? No. Sleep hygiene questionnaire: What is your usual sleep routine? Usual bedtime is at 10 pm; Usual wake up time is at 5-6 am. Do you take naps? No. Is your sleep environment cool, dark, and quiet? Yes. Do you exercise? No. Do you take caffeine or other stimulants? Diet coke, but not afternoon. Do you use electronics in bed? On occasion. What is your work schedule? 7-4 pm Hypersomnolence questionnaire: Do you have daytime tiredness or fatigue? Yes. Do you easily fall asleep when inactive? Yes. Have you ever had episodes of sudden weakness? No. Have you ever had episodes of sudden weakness associated with strong emotions? No. PFSH Medical History Borderline anemia Latent tuberculosis COVID-19 Sleep apnea Right shoulder pain GERD (gastroesophageal reflux disease) Surgical History History of esophagogastroduodenoscopy (EGD) Hx of colonoscopy History of orchiectomy Hx of tonsillectomy Family History Mother Colon cancer Maternal Aunt Celiac disease Other Other psychoactive substance abuse with psychoactive substance-induced mood disorder Social History Housing: House Patient Tobacco Use Status: Former Tobacco user Quit Date: very young e-Cigarette/Vaping Use: Never Used service: No Current occupational status: employed 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 Cognitive needs: No Hearing needs: No Vision needs: No Review of Systems Const All systems reviewed & are unremarkable except as noted in HPI and below Physical Exam Vital Signs: Last Vital Signs Pulse 71 10/05/23 14:35 BP 122/76 10/05/23 14:35 Pulse Ox 96 10/05/23 14:35 Oxygen Delivery Method Room Air 10/05/23 14:35 BMI result Body Mass Index 30.5 Const General: cooperative Nutritional Appearance: obese Orientation/consciousness: patient oriented x3 Neck Neck: Yes full ROM and Yes supple Resp Effort & Inspection: normal respiratory effort and able to speak in complete sentences Neuro General: patient oriented x3 and gait normal Cranial nerves: Yes CN's II-XII intact bilaterally Cognition (Neuro): normal cognition Gait exam (Neuro): Normal gait present Motor exam (neuro): 5/5 motor strength present throughout Psych Appearance: grossly normal Mental Status: mental status grossly normal Speech and movement: Normal speech and movement present Affect: normal affect Attitude: cooperative Assessment & Plan Assessment & Plan (1) Loud snoring: Code(s): R06.83 - Snoring (2) Sleep apnea: Code(s): G47.30 - Sleep apnea, unspecified (3) Fatigue: Code(s): R53.83 - Other fatigue Plan Pt is advised to undergo home sleep study to assess for sleep apnea. Will f/u with pt after study to discuss results and appropriate treatment options. Wt reduction advised. Pt to call with any worsening concerns or questions. Orders: Orders RT home sleep study 10/05/23 G47.30 - Sleep apnea, unspecified, R06.83 - Snoring, R53.83 - Other fatigue Coding Level of Care Code New Pt Level 3 (48312) Diagnoses Loud snoring R06.83 Sleep apnea G47.30 Fatigue R53.83
[2023-10-05 14:35] VITALS: BP 122/76; PULSE 71; O2SAT 96; BMI 30.5
== END 2023-10-05 14:56 | disposition home or self-care (01) ==
PROVIDERS: PCP Family Medicine; Visit Provider Nurse Practitioner Family
DX: R06.83 Snoring (principal); G47.30 Sleep apnea, unspecified; R53.83 Other fatigue
CPT/HCPCS: 99203

== ENCOUNTER → 2023-10-05 14:29 | Outpatient (BNVA) | payer OTHER, SELFPAY | PROVIDERS: PCP Family Medicine; Visit Provider Nurse Practitioner Family ==

== ENCOUNTER 2023-10-30 07:23 | Outpatient (AMB) | payer OTHER, SELFPAY ==
--- NOTE | 2023-10-30 07:37 | A.OFFVIS_ITS ---
Intake Vital Signs 10/30/23 07:42 Height 5 ft 11 in Weight 216 lb 0.848 oz BMI 30.1 BP 135/67 Blood Pressure Location Lt brachial Position Sitting Pulse 72 Intake Visit Reasons: S/p colonoscopy Intake Note: Ryland presents in the office as a follow up colonoscopy and EGD CC: After the procedure he was told the EGD was not good. He has concerns regarding those results. Refiner Operator Required: No Allergies No Known Allergies [No Known Allergies*] Allergy (Verified 10/30/23 07:38) Medication List - Last Reconciled 10/30/23 by Cathy Mcneil PA-C meloxicam 15 mg PO DAILY PRN omeprazole 20 mg PO DAILY HPI HPI Comments History of Present Illness Details Very pleasant 58-year-old Gent previous history of colon polyps follows up after recent EGD colonoscopy-with polypectomy Tolerated procedures well. However expresses his anxiety due to findings on upper endoscopy however Dr. Novoa did call him reviewed procedure report pathology with reassurance Appetite is good he has been following with omeprazole, daily-dietary modification= good response No bowel concerns Reviewed procedure report, pathology and recommendation Opportunity for questions answered to satisfaction Recommend repeat upper endoscopy 6 months No nausea, vomiting, hematemesis, hematochezia fever chills PFSH Medical History (Updated 10/30/23 @ 14:24 by Cathy Mcneil PA-C) Borderline anemia Latent tuberculosis COVID-19 Sleep apnea Right shoulder pain GERD (gastroesophageal reflux disease) Surgical History History of esophagogastroduodenoscopy (EGD) Hx of colonoscopy History of orchiectomy Hx of tonsillectomy Family History Mother Colon cancer Maternal Aunt Celiac disease Other Other psychoactive substance abuse with psychoactive substance-induced mood disorder Social History Housing: House Patient Tobacco Use Status: Former Tobacco user Quit Date: very young e-Cigarette/Vaping Use: Never Used service: No Current occupational status: employed 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 Cognitive needs: No Hearing needs: No Vision needs: No Review of Systems Const All systems reviewed & are unremarkable except as noted in HPI and below Psych Reports anxiety Physical Exam Vital Signs: Last Vital Signs Pulse 72 10/30/23 07:42 BP 135/67 10/30/23 07:42 BMI result Body Mass Index 30.1 Const General: cooperative, healthy appearing, comfortable, no acute distress and well groomed Orientation/consciousness: patient oriented x3 Limitations: no limitations Eyes Sclerae: sclerae normal Resp Effort & Inspection: normal respiratory effort and able to speak in complete sentences Skin General skin exam: no rashes or lesions noted Neuro General: patient oriented x3 Extrem General: Yes full ROM Psych Appearance: grossly normal and well kempt Mental Status: mental status grossly normal Speech and movement: Normal speech and movement present and Clear speech present Affect: normal affect Attitude: cooperative Thought process: Normal thought process present Thought content: Normal thought content present Insight: Good insight present (Psych) Judgement: Good judgement present (Psych) Results Reviewed Results Reviewed: Impression and Post Procedure Diagnosis: Endoscopy Findings: esophagitis lax LES possible Barretts gastritis esophageal inlet patch Colonoscopy Findings: polyps internal hemorrhoids diverticular disease Plan: Await Pathology results Repeat Colonoscopy in 5 years due to polyps or earlier if clinically indicated High fiber diet leaflet avoid straining at stool, epsom salts and sitz bath, anusol supps or cream GERD precautions, PPI compliance, consider increasing dose, avoid nsaids agnosis A. Stomach, biopsy: Gastric antral and body mucosa with focal minimal chronic inactive inflammation; negative for H pylori, intestinal metaplasia and dysplasia. B. Gastroesophageal junction, biopsy: Squamous mucosa with hyperplasia and few intraepithelial neutrophils and eosinophils (up to 2 per high-power field) consistent with reflux esophagitis, and columnar mucosa with mild chronic active inflammation; negative for intestinal metaplasia and dysplasia. C. Esophagus, distal, biopsy: Squamous mucosa with hyperplasia and rare intraepithelial eosinophils (up to 1 per high-power field) consistent with reflux esophagitis; no columnar mucosa present. D. Esophagus, proximal, biopsy: Squamous mucosa with no specific change; no columnar mucosa present. E. Colon, sigmoid and ascending, polyps: Tubular adenomas, two; negative for high-grade dysplasia and carcinoma. Clinical History Pre-Op Dx: Gastro-esophageal reflux disease without esophagitis Post-Op Dx: Polyps, hemorrhoids, diverticulosis Microscopic Description Microscopic sections reviewed. Immunostain for H. pylori on A is negative with appropriate control. Material Received A. Stomach bx's B. GE junction bx's to r/o Thomas's C. Distal esophagus bx's D. Proximal esophagus bx's E. Sigmoid colon and ascending colon polyps Gross Description Received in 5 parts. Part A: Received in formalin labeled ?stomach bx's? are 4 matthews irregular and rectangular tissue fragments ranging from 0.1-0.45 cm, submitted in toto in a cassette labeled A. Part B: Received in formalin labeled ?GE junction to rule out Thomas's? are 2 matthews and matthews-pink irregular Patient: Ryland Lynch Age/[facility]: 58[id number] MR#: [id number] Page 1 of 2 Assessment & Plan Assessment & Plan (1) GERD (gastroesophageal reflux disease): Comment: persistent GERD- Recommend- Barretts surveillance-r/o PUD/ non ulcerdyspepsia- esophagitis- Code(s): K21.9 - Gastro-esophageal reflux disease without esophagitis Plan: Schedule repeat EGD (2) History of colon polyps: Comment: hx polyps- new to [facility] Code(s): Z86.010 - Personal history of colonic polyps (3) Colon adenomas: Comment: 2 Adenoma Code(s): D12.6 - Benign neoplasm of colon, unspecified Plan: Repeat asymptomatic colonoscopy 5 Plan Repeat EGD 6 months Continue omeprazole will increase to omeprazole 40 mg daily Asymptomatic colonoscopy 5 years Orders: Orders EDG - GI Use Only Today Medications: New omeprazole 40 mg (2 x 20 mg) PO DAILY 30 days PRN 30 caps 6RF esophagitis Patient Instructions: Repeat EGD 6 months Continue omeprazole will increase to omeprazole 40 mg daily Asymptomatic colonoscopy 5 years Coding Level of Care Code Est Pt Level 3 (25647) Diagnoses GERD (gastroesophageal reflux disease) K21.9 History of colon polyps Z86.010 Colon adenomas D12.6 Time Spent (min) 30
[2023-10-30 07:42] VITALS: BP 135/67; PULSE 72; BMI 30.1
== END 2023-10-30 08:32 | disposition home or self-care (01) ==
PROVIDERS: Visit Provider Physician Assistant
DX: K21.9 Gastro-esophageal reflux disease without esophagitis (principal); Z86.010 Personal history of colon polyps; D12.6 Benign neoplasm of colon, unspecified
CPT/HCPCS: 99213

== ENCOUNTER → 2023-10-30 07:23 | Outpatient (BNVA) | payer OTHER, SELFPAY | PROVIDERS: Visit Provider Physician Assistant ==

== ENCOUNTER 2023-11-01 18:12 | Outpatient (REF) | payer OTHER, SELFPAY ==
--- NOTE | ~2023-11-01 | MR_ITS ---
EXAMINATION: MR SHOULDER WITHOUT CONTRAST, RIGHT CLINICAL INFORMATION: Right shoulder pain. COMPARISON: None available. TECHNIQUE: MRI of the shoulder without contrast was performed on a high-field scanner. FINDINGS: ROTATOR CUFF: A full-thickness insertional tear of the supraspinatus tendon is evident at the greater tuberosity measuring 1.8 cm AP with extension into the biceps ángel anteriorly. The torn margin of the supraspinatus is medially retracted by 1.4 cm . There is mild subscapularis and infraspinatus tendinosis. No muscle atrophy or fatty infiltration. BICEPS: Normal. CORACOACROMIAL ARCH: The undersurface of the acromion is with anterior and lateral subacromial spurs. Mild acromioclavicular osteoarthritis. A hlxbiwsr-oe-vadza volume of fluid is present in subacromial subdeltoid bursa. LABRUM/CAPSULE: There is a subtle tear of the glenoid labrum posterosuperiorly between the 11 o'clock position and posterior 9 o'clock position. No additional labral tears are identified. Axillary pouch is unremarkable. GLENOHUMERAL JOINT/MARROW: Small marginal osteophytes are present at the glenoid with foci of subchondral edema. Mild chondral thinning posterosuperiorly. No fracture or malalignment. No significant joint effusion or loose bodies. Chronic osseous hypertrophy at the greater tuberosity is likely and a result of chronic tendinopathy at the supraspinatus insertion. MR/MR shoulder RT wo con IMPRESSION: 1. A 1.8 cm (AP) full-thickness insertional tear of the supraspinatus tendon. No muscle atrophy. 2. Mild acromioclavicular and glenohumeral osteoarthritis. 3. Small focal tear of the posterosuperior glenoid labrum. 4. Lbybpnpe-vx-ctuzka subacromial subdeltoid bursitis.
== END 2023-11-01 18:13 | disposition home or self-care (01) ==
LOC: HO.MRI 18:12
PROVIDERS: PCP Family Medicine; Visit Provider Orthopaedic Surgery
DX: M25.511 Pain in right shoulder (principal)
CPT/HCPCS: 73221

== ENCOUNTER 2023-11-13 15:16 | Outpatient (AMB) | payer OTHER, SELFPAY ==
[2023-11-13 15:26] VITALS: BMI 30.1
--- NOTE | 2023-11-13 15:26 | MHC.OFFVIS ---
Intake Vital Signs 11/13/23 15:26 Height 5 ft 11 in Weight 216 lb BMI 30.1 Intake Visit Reasons: MRI review Right shoulder Intake Note: Ryland is a 58 yr old male presents with complaints of right shoulder pain and weakness. The patient states that he has been going to formal physical therapy which has helped with his range of motion but not his pain. The patient states that he has had intermittent pain in his right shoulder for the last several years. 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 He also played a fair amount of softball when he was younger. He 1st aggravated his right shoulder approximately 20 years ago while jumping on a trampoline with his 2-year-old daughter. He has weakness when lifting his right hand above shoulder height. Allergies No Known Allergies [No Known Allergies*] Allergy (Verified 11/13/23 15:30) Medication List - Last Reconciled 11/13/23 by Grant Lebron MD meloxicam 15 mg PO DAILY PRN omeprazole 20 mg PO DAILY omeprazole 40 mg PO DAILY PFSH Medical History Borderline anemia Latent tuberculosis COVID-19 Sleep apnea Right shoulder pain GERD (gastroesophageal reflux disease) Surgical History History of esophagogastroduodenoscopy (EGD) Hx of colonoscopy History of orchiectomy Hx of tonsillectomy Family History Mother Colon cancer Maternal Aunt Celiac disease Other Other psychoactive substance abuse with psychoactive substance-induced mood disorder Social History Housing: House Patient Tobacco Use Status: Former Tobacco user Quit Date: very young e-Cigarette/Vaping Use: Never Used service: No Current occupational status: employed 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 Cognitive needs: No Hearing needs: No Vision needs: No Physical Exam Vital Signs: BMI result Body Mass Index 30.1 Const Other: Well-nourished well-developed very friendly male awake alert and oriented x3 in no acute distress Extrem Other: Bilateral upper extremity examination shows good capillary refill, no skin lesions noted, normal sensation light touch Right shoulder examination shows decreased range of motion when compared to his left shoulder, 4/5 strength with supraspinatus testing, positive impingement signs, tenderness over his acromioclavicular joint, no instability Results Reviewed Results Reviewed: MRI of the patient's right shoulder shows severe acromioclavicular joint narrowing, a type 3 acromion, a full-thickness tear along the anterior aspect of the supraspinatus tendon Assessment & Plan Assessment & Plan (1) Rotator cuff insufficiency of right shoulder: Code(s): M25.311 - Other instability, right shoulder Plan Mr. Lynch presents with progressively worsening right shoulder pain and weakness due to impingement syndrome, acromioclavicular joint arthritis and a full-thickness rotator cuff tear. I had a lengthy discussion with the patient regarding the treatment options. At this point he has failed continued non operative treatments. The risks and benefits of right shoulder surgery were discussed at length with the patient. The patient wishes to proceed with surgery. Surgery will involve right shoulder diagnostic arthroscopy with distal clavicle excision, acromioplasty and rotator cuff repair. The patient will be scheduled for a next available date. He will continue with his range of motion exercises in the meantime to prevent stiffness. He will follow-up as instructed. I spent 22 minutes in reviewing the patient's records and imaging studies, seeing the patient and documenting in the medical record. Coding Level of Care Code Est Pt Level 2 (39019) Diagnoses Rotator cuff insufficiency of right shoulder M25.311
== END 2023-11-13 15:48 | disposition home or self-care (01) ==
PROVIDERS: Visit Provider Orthopaedic Surgery
DX: M25.311 Other instability, right shoulder (principal)
CPT/HCPCS: 99214

== ENCOUNTER → 2023-11-13 15:16 | Outpatient (BNVA) | payer OTHER, SELFPAY | PROVIDERS: Visit Provider Orthopaedic Surgery ==

== ENCOUNTER 2023-12-14 09:00 | Day surgery (SDC) | payer OTHER, SELFPAY ==
[2023-12-12 11:03] VITALS: BMI 29.3
--- NOTE | 2023-12-12 14:09 | P.CONAN_ITS ---
Documented by User: Lula Kong NP 12/12/23 14:11 HPI - Anesthesia Eval Consult details Narrative: 58yo M for Right Shoulder Arthroscopy distal clavicle excision, acromioplasty, rotator cuff repair PMFSH Active Problems Active Problems: All Active Problems Rotator cuff insufficiency of right shoulder (Acute) Colon adenomas (Acute) Loud snoring (Acute) Impingement of right shoulder (Acute) Right shoulder pain (Acute) Rash (Acute) History of latent tuberculosis (Acute) Exposure to TB (Acute) History of smoking (Acute) Unilateral hearing loss (Acute) Sleep apnea (Acute) Fatigue (Acute) Borderline anemia (Acute) Screening for prostate cancer (Acute) Encounter for screening for malignant neoplasm of colon (Acute) Adult general medical exam (Acute) Elevated LDL cholesterol level (Acute) Family history of colon cancer (Acute) Low testosterone (Acute) Low libido (Acute) History of colon polyps (Acute) Laboratory exam ordered as part of routine general medical examination (Acute) Right shoulder pain (Acute) GERD (gastroesophageal reflux disease) (Acute) Past Medical History Medical History Borderline anemia Latent tuberculosis COVID-19 Sleep apnea Right shoulder pain GERD (gastroesophageal reflux disease) Family History Family History Mother Colon cancer Maternal Aunt Celiac disease Other Other psychoactive substance abuse with psychoactive substance-induced mood disorder Surgical History Surgical History History of esophagogastroduodenoscopy (EGD) Hx of colonoscopy History of orchiectomy Hx of tonsillectomy History of Problems with Anesthesia: No Social History Social History Housing: House Are you a primary care transitions nurse to a significant other at home: No Do you presently have visiting nurse or other home services: No Patient Tobacco Use Status: Former Tobacco user Quit Date: ~age 32 Tobacco use type: Cigarette e-Cigarette/Vaping Use: Never Used Use of substances other than those prescribed or required for medical reasons: No Have you been hit, kicked, punched, or otherwise hurt by someone within the past year? 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 Cognitive needs: No Hearing needs: No Vision needs: No Meds Allergies Allergy/AdvReac Type Severity Reaction Status Date / Time No Known Allergies Allergy Verified 12/14/23 09:46 [No Known Allergies*] Home Medications ?Medication ?Instructions ?Recorded ?Confirmed ?Last Taken ?Type meloxicam 15 mg tablet 15 mg PO DAILY PRN Pain 08/30/23 12/12/23 Unknown History omeprazole 40 mg capsule,delayed 40 mg PO QPM 11/13/23 12/12/23 Unknown History release aspirin 81 mg tablet,delayed 81 mg PO DAILY 12/12/23 12/12/23 12/09/23 History release Exam Height,Weight and Vital Signs: Height 5 ft 11 in Weight 95.254 kg Assessment and Plan Assessment Anesthesia Assessment: Chart Reviewed Final Anesthetic Review History of Problems with Anesthesia: No Documented by User: Tara Landis MD 12/14/23 10:50 PMFSH Past Medical History Medical History Borderline anemia Latent tuberculosis COVID-19 Sleep apnea Right shoulder pain GERD (gastroesophageal reflux disease) Family History Family History Mother Colon cancer Maternal Aunt Celiac disease Other Other psychoactive substance abuse with psychoactive substance-induced mood disorder Surgical History Surgical History History of esophagogastroduodenoscopy (EGD) Hx of colonoscopy History of orchiectomy Hx of tonsillectomy Social History Social History Housing: House Are you a primary care transitions nurse to a significant other at home: No Do you presently have visiting nurse or other home services: No Patient Tobacco Use Status: Former Tobacco user Quit Date: ~age 32 Tobacco use type: Cigarette e-Cigarette/Vaping Use: Never Used Use of substances other than those prescribed or required for medical reasons: No Have you been hit, kicked, punched, or otherwise hurt by someone within the past year? 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 Cognitive needs: No Hearing needs: No Vision needs: No Meds Allergies Allergy/AdvReac Type Severity Reaction Status Date / Time No Known Allergies Allergy Verified 12/14/23 09:46 [No Known Allergies*] Home Medications ?Medication ?Instructions ?Recorded ?Confirmed ?Last Taken ?Type meloxicam 15 mg tablet 15 mg PO DAILY PRN Pain 08/30/23 12/12/23 Unknown History omeprazole 40 mg capsule,delayed 40 mg PO QPM 11/13/23 12/12/23 Unknown History release aspirin 81 mg tablet,delayed 81 mg PO DAILY 12/12/23 12/12/23 12/09/23 History release Exam Airway Mallampati Class: III TM Dist: >3cm Neck ROM: Full Partial: Upper Loose/Missing/Broken Teeth: Yes and Upper Heart: RRR Lungs: CTA Assessment and Plan Assessment Anesthesia Assessment: Anesthesia Plan Discussed Final Anesthetic Review NPO: Yes ASA Class: II Final Preanesthetic Review: Meds/Allgs Chart Reviewed, Consent Obtained/Reviewed and Anes Risks/Benef Reviewed Patient Risk: Low Procedure Risk: Low Anesthetic Plan Anesthetic Plan: GA Disposition: Standard PACU
[2023-12-14] VITALS (7 sets, daily range): BP systolic 116–147; BP diastolic 65–83; PULSE 71–99; RESP 12–19; TEMP 35.8–36.7; O2SAT 2–97
--- NOTE | 2023-12-14 09:04 | ECG_ITS ---
Test Reason : DAWSON Blood Pressure : / mmHG Vent. Rate : 063 BPM Atrial Rate : 063 BPM P-R Int : 194 ms QRS Dur : 082 ms QT Int : 392 ms P-R-T Axes : 054 030 031 degrees QTc Int : 401 ms Normal sinus rhythm Normal ECG When compared with ECG of 17-SEP-2019 01:46, No significant change was found Referred By: Lula Kong Electronically Signed By:SEYMOUR LOREDO MD
[2023-12-14 09:41] LABS: Hematocrit 40.9 % (42.0-52.0); Hemoglobin 13.7 g/dl (14.0-18.0); Mean Corpuscular HGB Conc 33.5 g/dl (31.0-36.0); Mean Corpuscular Hemoglobin 29.4 pg (27.0-33.0); Mean Corpuscular Volume 87.8 fL (80.0-98.0); Platelet Count 323 X10*3/uL (160-400); Red Blood Count 4.66 X10*6/uL (4.60-5.80); Red Cell Distribution Width 12.1 % (11.0-16.0); White Blood Count 4.9 X10*3/uL (4.8-10.8)
[2023-12-14] MEDS: Lactated Ringers 1,000 ML 100 ML IVCONT (09:48)
[2023-12-14 09:56] LABS: Anion Gap 10 (12-20); Blood Urea Nitrogen 14 mg/dL (9-16); Calcium 9.2 mg/dL (8.4-10.2); Carbon Dioxide 26 mmol/L (22-29); Chloride 109 mmol/L (96-108); Creatinine Clr Calc Pharmacy 124.5; Estimated Glomerular Filt Rate > 60; Glucose Fasting 96 mg/dL (60-99); Potassium 4.1 mmol/L (3.3-5.1); Sodium 141 mmol/L (135-145)
--- NOTE | 2023-12-14 13:42 | PM.OP ---
Brief Operative Note Date of Service: 12/14/23 Pre-op diagnosis: Right shoulder impingement syndrome, right shoulder acromioclavicular joint arthritis, right shoulder rotator cuff tear Post-op diagnosis: same Procedure: Right shoulder diagnostic arthroscopy with right shoulder arthroscopic distal clavicle excision, right shoulder arthroscopic acromioplasty, right shoulder mini-open rotator cuff repair Implants: One suture anchor (Rodriguez and Nephew Twinfix suture anchor with #2 Ultrabraid suture) Surgeon: Grant Lebron MD Anesthesia: GETA and regional Was an Application Integration Specialist used for this Procedure?: No Estimated blood loss (mL): 10 Pathology: none sent Condition: stable Disposition: PACU
--- NOTE | 2023-12-14 13:44 | P.OP_ITS ---
Operative Note Operative Note Date of Service: 12/14/23 Narrative: After the patient was identified as Ryland Lynch and his right shoulder was initialed by myself the patient was brought to the holding area where a right shoulder interscalene regional block was performed by the anesthesiologist in routine fashion. The patient was then brought to the operating room where general anesthesia was induced by the anesthesiologist in routine fashion. The patient was given 2 g of IV Ancef preoperatively for infection prophylaxis. Examination under anesthesia of the patient's right shoulder showed full passive range of motion of the patient's right shoulder when compared to the left. The patient was gently positioned in the beach chair position with all bony prominences well padded. The patient's right shoulder region and upper extremity were prepped and draped in sterile fashion. A formal time-out was completed. A #11 scalpel blade was used to make a posterior portal 2 cm inferior and 1 cm medial to the posterolateral corner of the acromion. Blunt trocar technique was used to enter the glenohumeral joint in routine fashion. An anterior portal was made just lateral to the coracoid process after proper positioning was confirmed using a spinal needle. Diagnostic arthroscopy showed minimal degenerative changes of the glenoid and humeral head articular surfaces. There was a full-thickness tear of the supraspinatus tendon. There was no evidence of injury to the biceps tendon or its insertion onto the glenoid. There was no inflammation of the anterior joint capsule. The arthroscope was then placed from the posterior portal into the subacromial space. A lateral portal was made 2 fingerbreadths lateral to the anterior lateral corner of the acromion. The ArthroCare Wand was used to ablate soft tissues along the undersurface of the acromion as well as to excise the coracoacromial ligament. There was a sharp spur along the undersurface of the acromion which was removed using the hooded bur. The arthroscope was then placed into the lateral portal and the acromioplasty was completed with the bur in the posterior portal using the posterior aspect of the acromion as a cutting block. The ArthroCare Wand was then brought in through the anterior portal and was used to ablate soft tissues along the acromioclavicular joint and distal clavicle. The posterior and superior ligamentous structures were left intact. A distal clavicle excision of 8 mm was performed using the hooded bur. Any remaining bursal tissue was removed using the arthroscopic shaver. The subacromial space was irrigated and then drained. All arthroscopic instruments were removed. Sterile gloves were changed and the shoulder was once again prepped with Betadine. A #15 scalpel blade was used to extend the lateral portal to the lateral edge of the acromion. The subacromial tissues were dissected using electrocautery down to the superficial deltoid fascia. The trocar split in the anterior raphe of the deltoid was then extended to the lateral edge of the acromion using elec trocautery and curved Velasquez scissors. Any remaining bursal tissue was removed using curved Velasquez scissors. Subacromial and subdeltoid adhesions were bluntly dissected. The undersurface of the acromion was palpated and it was smooth. A #2 Ethibond tag suture was placed into the supraspinatus tendon. The tendon was easily mobilized to its insertion point on the glenoid. The wound was irrigated with copious amounts of normal saline solution. One suture anchor was placed into the greater tuberosity in routine fashion. The rotator cuff repair was then performed using horizontal mattress sutures under minimal tension with the patient's elbow at their side. Following the repair the shoulder was taken through a full range of motion. The repair was stable. The wound was irrigated with copious amounts of normal saline solution. The superficial and deep deltoid fascia were closed with #1 Vicryl [id number]-ca-rjuhr interrupted suture. The wound was once again irrigated. The subcutaneous tissues were closed with 2-0 Vicryl interrupted suture. The skin was closed with 3-0 Prolene subcuticular suture and Steri-Strips. The anterior and posterior portals were closed with 3-0 nylon interrupted suture. Dry sterile dressing was placed over all incisions. The patient's right upper extremity was placed into a sling. The patient was awoken and extubated in the operating room. The patient was transferred to the recovery room in stable condition.
[2023-12-14] MEDS: cefTRIAXone sodium 1 GM in 0.9 % Sodium Chloride 50 ML IV (14:07)
== END 2023-12-14 15:00 | disposition home or self-care (01) ==
PROVIDERS: Nurse Practitioner; PCP Family Medicine; Visit Provider Orthopaedic Surgery
PROC: (CPT 29805; principal; 2023-12-14 10:30)
DX: M75.01 Adhesive capsulitis of right shoulder (principal); M75.41 Impingement syndrome of right shoulder; M19.011 Primary osteoarthritis, right shoulder; M25.311 Other instability, right shoulder; Z87.828 Personal history of other (healed) physical injury and trauma; Z22.7 Latent tuberculosis; D64.9 Anemia, unspecified; G47.30 Sleep apnea, unspecified; K21.9 Gastro-esophageal reflux disease without esophagitis; Z79.899 Other long term (current) drug therapy; Z79.82 Long term (current) use of aspirin; Z98.890 Other specified postprocedural states; Z87.891 Personal history of nicotine dependence
CPT/HCPCS: 23412; 29824; 29826; 36415; 80048; 85027; 93005; C1713; J0131; J0171; J0665; J0690; J0696; J1100; J2250; J2405; J2704; J2795

== ENCOUNTER → 2023-12-14 09:00 | Outpatient (BNV) | payer OTHER, SELFPAY | PROVIDERS: PCP Family Medicine; Visit Provider Orthopaedic Surgery | DX: M75.41 Impingement syndrome of right shoulder (principal); M19.011 Primary osteoarthritis, right shoulder; M75.121 Complete rotator cuff tear or rupture of right shoulder, not specified as traumatic | CPT/HCPCS: 23412; 29824; 29826 ==

== ENCOUNTER → 2023-12-14 09:04 | Outpatient (BNV) | payer OTHER, SELFPAY | PROVIDERS: PCP Family Medicine; Visit Provider Internal Medicine Cardiovascular Disease | DX: G47.33 Obstructive sleep apnea (adult) (pediatric) (principal) | CPT/HCPCS: 93010 ==

== ENCOUNTER 2023-12-27 08:07 | Outpatient (AMB) | payer OTHER, SELFPAY ==
--- NOTE | 2023-12-27 08:08 | MHC.OFFVIS ---
Vital Signs 12/27/23 08:10 Height 5 ft 11 in Weight 210 lb BMI 29.3 Intake Visit Reasons: PO-Rt RTC Repair 12/14/23 Intake Note: Ryland is a 58 year old male who presents for his post operative appointment s/p Right RTC repair on 12/14/2023 Patient reports he has a little pain but is doing well and has not concerns at this time. He is due to begin physical therapy next week. Allergies No Known Allergies [No Known Allergies*] Allergy (Verified 12/27/23 08:11) Medication List - Last Reconciled 12/27/23 by Grant Lebron MD aspirin 81 mg PO DAILY meloxicam 15 mg PO DAILY PRN omeprazole 40 mg PO QPM oxycodone 10 mg (2 x 5 mg) PO Q4H PRN 1 week PFSH Medical History Borderline anemia Latent tuberculosis COVID-19 Sleep apnea Right shoulder pain GERD (gastroesophageal reflux disease) Surgical History History of esophagogastroduodenoscopy (EGD) Hx of colonoscopy History of orchiectomy Hx of tonsillectomy Family History Mother Colon cancer Maternal Aunt Celiac disease Other Other psychoactive substance abuse with psychoactive substance-induced mood disorder Social History Housing: House Are you a primary director of healthcare systems to a significant other at home: No Do you presently have visiting nurse or other home services: No Patient Tobacco Use Status: Former Tobacco user Quit Date: ~age 32 Tobacco use type: Cigarette e-Cigarette/Vaping Use: Never Used service: No Current occupational status: employed 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 Cognitive needs: No Hearing needs: No Vision needs: No Physical Exam Vital Signs: BMI result Body Mass Index 29.3 Extrem Other: Right shoulder examination shows that the surgical incisions are well healed, no erythema Assessment & Plan Assessment & Plan (1) Right shoulder pain: Code(s): M25.511 - Pain in right shoulder Category: Medical Plan Mr. Lynch is doing well after undergoing right shoulder rotator cuff repair surgery on 12/14/2023. His sutures were removed and Steri-Strips placed over his incisions. He will begin formal physical therapy next week as scheduled. Therapy will involve passive range of motion exercises until he is 8 weeks out from surgery. I will clear him to return to work once his discomfort has improved. He will contact me prior to his follow-up appointment in 1 month should any questions or concerns arise. Coding Level of Care Code Global (35789) Diagnoses Right shoulder pain M25.511
[2023-12-27 08:10] VITALS: BMI 29.3
== END 2023-12-27 08:24 | disposition home or self-care (01) ==
PROVIDERS: Visit Provider Orthopaedic Surgery
DX: M25.511 Pain in right shoulder (principal)
CPT/HCPCS: 99024

== ENCOUNTER → 2023-12-27 08:07 | Outpatient (BNVA) | payer OTHER, SELFPAY | PROVIDERS: Visit Provider Orthopaedic Surgery ==

== ENCOUNTER 2023-12-27 15:57 | Outpatient (AMB) | payer OTHER, SELFPAY ==
[2023-12-27 16:08] VITALS: BP 122/80; PULSE 73; O2SAT 97; BMI 29.8
--- NOTE | 2023-12-27 16:08 | A.OFFPC_ITS ---
Vital Signs 12/27/23 16:08 Height 5 ft 11 in Weight 214 lb BMI 29.8 BP 122/80 Blood Pressure Location Lt brachial Position Sitting Pulse 73 Pulse Source Pulse Oximeter Pulse Oximetry (%) 97 Oxygen Delivery Method Room Air Intake Visit Reasons: follow up after rotator cuff surgery Intake Note: Patient is here following rotator cuff surgery. Allergies No Known Allergies [No Known Allergies*] Allergy (Verified 12/27/23 16:10) Tobacco use date assessed: 12/27/23 Dental Screening Dental Screen Date: 12/27/23 Did you have a dental visit in the last 12 months?: Yes Did you have a dental problem in the last 6 months where you did not have access to dental care?: No Was dental information given to patient?: Patient has dentist HPI follow up after rotator cuff surgery HPI Details Patient?had?right?rotator?cuff?repair?on?12/14/2023.??Healing?well?and?jackelyn l?begin?physical?therapy?soon. Has?rash?under?right?axilla.??Tried?hydrocortisone?cream?and?this?did?not?resolv e?it. PFSH Medical History Borderline anemia Latent tuberculosis COVID-19 Sleep apnea Right shoulder pain GERD (gastroesophageal reflux disease) Surgical History History of esophagogastroduodenoscopy (EGD) Hx of colonoscopy History of orchiectomy Hx of tonsillectomy Family History Mother Colon cancer Maternal Aunt Celiac disease Other Other psychoactive substance abuse with psychoactive substance-induced mood disorder Social History Housing: House Are you a primary daytime caregiver to a significant other at home: No Do you presently have visiting nurse or other home services: No Patient Tobacco Use Status: Former Tobacco user Quit Date: ~age 32 Tobacco use type: Cigarette e-Cigarette/Vaping Use: Never Used service: No Current occupational status: employed 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 Cognitive needs: No Hearing needs: No Vision needs: No Review of Systems Const Denies chills, Denies fatigue, Denies fever(s), Denies headache(s) and Denies weakness ENT Denies dizziness and Denies headache(s) Card Denies chest pain, Denies lightheadedness, Denies dyspnea and Denies other (Palpitations) Resp Denies cough, Denies dyspnea, Denies wheezing and Denies other ( shortness of breath) Musc Denies numbness and Denies tingling Skin/Breast Details: Rash?under?right?axilla Neuro Denies dizziness, Denies headache(s), Denies numbness, Denies tingling, Denies paresthesias and Denies weakness Psych Denies anxiety and Denies depression Endo Denies fatigue Aller/Immun Denies wheezing Physical exam (Primary Care) Vital Signs: Last Vital Signs Pulse 73 12/27/23 16:08 BP 122/80 12/27/23 16:08 Pulse Ox 97 12/27/23 16:08 Oxygen Delivery Method Room Air 12/27/23 16:08 BMI result Body Mass Index 29.8 Tobacco/Smoking Status: Tobacco use Status Tobacco use date assessed 12/27/23 12/27/23 16:12 Patient Tobacco Use Status Former Tobacco user 12/27/23 16:12 Tobacco use type Cigarette 12/27/23 16:12 e-Cigarette/Vaping Use Never Used 12/27/23 16:12 Const General: no acute distress and well developed Nutritional Appearance: well nourished Orientation/consciousness: patient oriented x3 HENMT Head: Yes normocephalic and Yes atraumatic Eyes General: appearance normal, both eyes and all related structures Pupils: Equal, round and reactive pupils present EOM: EOMs intact bilaterally Resp Effort & Inspection: normal respiratory effort Auscultation: clear to auscultation bilaterally Cardio Rate: regular rate Rhythm: regular rhythm Heart sounds: S1 normal heart sound present, S2 normal heart sound present, no gallops, no murmurs and no rubs Skin Other: Rash?at?right?axilla?with?satellite?lesions Likely?yeast/fungal?infection Neuro General: patient oriented x3 and gait normal Cranial nerves: Yes Equal, round and reactive pupils present Extrem Other: Right?arm?in?sling.??Already?has?some?range?of?motion?back. Wound?is?healing?well Psych Affect: normal affect Assessment and Plan Assessment & Plan (1) Rotator cuff insufficiency of right shoulder: Code(s): M25.311 - Other instability, right shoulder Plan: Now?s/p?rotator?cuff?repair Doing?well?and?already?has?some?range?of?motion?back He?will?begin?rehab?soon Follow-up?with?ortho?as?recommended (2) Yeast infection of the skin: Code(s): B37.2 - Candidiasis of skin and nail Plan: Yeast?infection?at?right?axilla?because?he?was? not?able?to?move?his?arm?after?rotator?cuff?repair. Will?give?him?clotrimazole?cream. Avoid?excess?moisture?and?this?is?easier?now?that?he?has?some?range?of?motion?of ?shoulder Orders: Orders Comprehensive [place]. Panel Fast Today Z00.00 - Encounter for general adult medical examination without abnormal findings Prostate Specific Antigen Scr Today Z12.5 - Encounter for screening for malignant neoplasm of prostate XR chest 2V Today Z86.15 - Personal history of latent tuberculosis infection Complete Blood Count Auto Diff Today Z00.00 - Encounter for general adult medical examination without abnormal findings Lipid Panel Today Z00.00 - Encounter for general adult medical examination without abnormal findings Microalbumin, Random (w Creat) Today I10 - Essential (primary) hypertension TSH reflex Free T4 Today Z00.00 - Encounter for general adult medical examination without abnormal findings UA and rflx microscopic Today Z00.00 - Encounter for general adult medical examination without abnormal findings Medications: New clotrimazole 1% 1 appl topical BID 2 weeks 45 grams 1RF Coding Level of Care Code Est Pt Level 3 (35386) Diagnoses Rotator cuff insufficiency of right shoulder M25.311 Yeast infection of the skin B37.2
== END 2023-12-27 16:48 | disposition home or self-care (01) ==
PROVIDERS: Visit Provider Family Medicine
DX: M25.311 Other instability, right shoulder (principal); B37.2 Candidiasis of skin and nail
CPT/HCPCS: 99213

== ENCOUNTER 2024-01-31 09:31 | Outpatient (AMB) | payer OTHER, SELFPAY ==
--- NOTE | 2024-01-31 09:35 | MHC.OFFVIS ---
Intake Visit Reasons: PO-Rt RTC Repair 12/14/23 DR-month follow up Intake Note: Ryland is a 59 year old male who presents for routine follow-up after undergoing right shoulder rotator cuff repair surgery on 12/14/2023. He continues to go to physical therapy at [facility] [place]. He has no longer taking narcotics for his discomfort. He denies any fevers or chills. Has been doing passive range of motion exercises only. He would like to progress to active range of motion exercises. He continues to wear a sling when he is out of his home. Allergies No Known Allergies [No Known Allergies*] Allergy (Verified 01/31/24 09:35) Medication List - Last Reconciled 01/31/24 by Grant Lebron MD aspirin 81 mg PO DAILY clotrimazole 1% 1 appl topical BID 2 weeks omeprazole 40 mg PO QPM PFSH Medical History Borderline anemia Latent tuberculosis COVID-19 Sleep apnea Right shoulder pain GERD (gastroesophageal reflux disease) Surgical History History of esophagogastroduodenoscopy (EGD) Hx of colonoscopy History of orchiectomy Hx of tonsillectomy Family History Mother Colon cancer Maternal Aunt Celiac disease Other Other psychoactive substance abuse with psychoactive substance-induced mood disorder Social History Housing: House Are you a primary inpatient care manager rn to a significant other at home: No Do you presently have visiting nurse or other home services: No Patient Tobacco Use Status: Former Tobacco user Tobacco use type: Cigarette e-Cigarette/Vaping Use: Never Used service: No Current occupational status: employed 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 Cognitive needs: No Hearing needs: No Vision needs: No Physical Exam Const Other: Well-nourished well-developed very friendly male awake alert and oriented x3 in no acute distress Extrem Other: Right shoulder examination shows passive forward flexion to 120 degrees, external rotation at 30 degrees, mild to moderate discomfort with range of motion Assessment & Plan Assessment & Plan (1) Right shoulder pain: Code(s): M25.511 - Pain in right shoulder Category: Medical Plan Mr. Lynch continues to do fairly well after undergoing right shoulder rotator cuff repair surgery on 12/14/2023. He does remain somewhat stiff. He will continue with his passive range of motion exercises for the next 1-2 weeks. At that point he can gradually progress to active range of motion exercises. The do's and don'ts of lifting were discussed at length with the patient. I will see him back in 2-3 weeks' time for repeat clinical examination. I will clear him to return to work once his discomfort and range of motion have improved. Coding Level of Care Code Global (10760) Diagnoses Right shoulder pain M25.511
== END 2024-01-31 09:56 | disposition home or self-care (01) ==
PROVIDERS: Visit Provider Orthopaedic Surgery
DX: M25.511 Pain in right shoulder (principal)
CPT/HCPCS: 99024

== ENCOUNTER → 2024-01-31 09:31 | Outpatient (BNVA) | payer OTHER, SELFPAY | PROVIDERS: Visit Provider Orthopaedic Surgery ==

== ENCOUNTER 2024-02-19 08:23 | Outpatient (AMB) | payer OTHER, SELFPAY ==
--- NOTE | 2024-02-19 08:29 | MHC.OFFVIS ---
Intake Visit Reasons: PO - Rt RTC Repair 12/14/23 - 3 wk f/u Intake Note: Ryland is a 59 year old male who presents today post operatively s/p Right RTC Repair 12/14/23 Pt states he is feeling well and states his ROM has improved and believes PT is helping greatly. Pt states he is still using ice to help after PT. Allergies No Known Allergies [No Known Allergies*] Allergy (Verified 02/19/24 08:29) Medication List - Last Reconciled 02/19/24 by Grant Lebron MD aspirin 81 mg PO DAILY clotrimazole 1% 1 appl topical BID 2 weeks omeprazole 40 mg PO QPM PFSH Medical History Borderline anemia Latent tuberculosis COVID-19 Sleep apnea Right shoulder pain GERD (gastroesophageal reflux disease) Surgical History History of esophagogastroduodenoscopy (EGD) Hx of colonoscopy History of orchiectomy Hx of tonsillectomy Family History Mother Colon cancer Maternal Aunt Celiac disease Other Other psychoactive substance abuse with psychoactive substance-induced mood disorder Social History Housing: House Are you a primary wound care rn to a significant other at home: No Do you presently have visiting nurse or other home services: No Patient Tobacco Use Status: Former Tobacco user Tobacco use type: Cigarette e-Cigarette/Vaping Use: Never Used service: No Current occupational status: employed 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 Cognitive needs: No Hearing needs: No Vision needs: No Physical Exam Extrem Other: Right shoulder examination shows that the surgical incisions are well healed, no erythema, almost full range of motion when compared to his left shoulder, minimal discomfort with range of motion Assessment & Plan Assessment & Plan (1) Right shoulder pain: Code(s): M25.511 - Pain in right shoulder Category: Medical Plan Mr. Lynch continues to do well after undergoing right shoulder rotator cuff repair surgery on 12/14/2023. Will continue with his range of motion exercises. He will gradually progress to activities as tolerated. The do's and don'ts of lifting were discussed at length with the patient. He will contact me prior to his follow-up appointment in 2 months should any questions or concerns arise. I did clear him to return to work next week. Coding Level of Care Code Global (00313) Diagnoses Right shoulder pain M25.511
== END 2024-02-19 08:51 | disposition home or self-care (01) ==
PROVIDERS: Visit Provider Orthopaedic Surgery
DX: M25.511 Pain in right shoulder (principal)
CPT/HCPCS: 99024

== ENCOUNTER → 2024-02-19 08:23 | Outpatient (BNVA) | payer OTHER, SELFPAY | PROVIDERS: Visit Provider Orthopaedic Surgery ==

== ENCOUNTER 2024-04-25 07:25 | Outpatient (REF) | payer OTHER, SELFPAY ==
--- NOTE | ~2024-04-25 | XR_ITS ---
EXAMINATION: XR chest 2V CLINICAL INFORMATION: Z86.15 - Personal history of latent tuberculosis infection COMPARISON: Chest radiograph 06/05/2023 TECHNIQUE: 2 views of the chest FINDINGS: Clear lungs. No pneumothorax. No pleural effusion. Normal cardiomediastinal silhouette. XR/XR chest 2V IMPRESSION: No acute cardiopulmonary findings. Electronically signed by: Christy Adkins MD 05/13/2024 04:21 PM EDT
[2024-04-25 07:38] LABS: MANUAL DIFF FLAG NO
[2024-04-25 08:20] LABS: Basophils Absolute Auto 0.1 X10*3/uL (0.0-0.2); Basophils Percent Auto 1.4 % (0-2); Eosinophils Absolute Auto 0.1 X10*3/uL (0.0-0.4); Eosinophils Percent Auto 1.8 % (0-4); Hematocrit 41.6 % (42.0-52.0); Imm Gran Abs Auto 0.06 X10*3/uL (0.00-0.03); Imm Gran Pct Auto 1.1 % (0.0-0.4); Mean Corpuscular HGB Conc 33.7 g/dl (31.0-36.0); Mean Corpuscular Hemoglobin 29.4 pg (27.0-33.0); Mean Corpuscular Volume 87.2 fL (80.0-98.0); Mean Platelet Volume 10.2 fL (9.4-12.4); Monocytes Absolute Auto 0.6 X10*3/uL (0.1-1.2); Monocytes Percent Auto 9.9 % (2-11); Neutrophils Absolute Auto 2.8 x10*3/uL (2.0-8.3); Neutrophils Percent Auto 50.8 % (45-73); Platelet Count 254 X10*3/uL (160-400); Red Blood Count 4.77 X10*6/uL (4.60-5.80); Red Cell Distribution Width 12.3 % (11.0-16.0); White Blood Count 5.6 X10*3/uL (4.8-10.8)
[2024-04-25 08:40] LABS: Appearance Urine Clear; Color Urine Yellow; Glucose Urine UA Negative (Negative); Leukocyte Esterase Urine Negative (Negative); Nitrite Urine Negative (Negative); PH 5.5 (5.0-9.0); Urine Blood Negative (Negative); Urine Ketones Negative (Negative); Urine Protein Negative (Neg-Trace)
[2024-04-25 08:55] LABS: Creatinine Urine 151.78 mg/dL; Microalbum/Creatinine Ratio Ur 3.9 ug/mg cr (<30)
[2024-04-25 09:03] LABS: Alanine Aminotransferase 31 U/L (0-40); Albumin Level 4.1 g/dL (3.5-5.0); Alkaline Phosphatase 49 U/L (39-117); Anion Gap 12 (12-20); Aspartate Amino Transferase 23 U/L (5-37); Bilirubin Total 0.6 mg/dL (0.0-1.0); Blood Urea Nitrogen 17 mg/dL (9-16); Calcium 9.5 mg/dL (8.4-10.2); Carbon Dioxide 27 mmol/L (22-29); Chloride 108 mmol/L (96-108); Cholesterol 265 mg/dL (<200); Estimated Glomerular Filt Rate > 60; Glucose Fasting 98 mg/dL (60-99); HDL Cholesterol 54 mg/dL (>40); LDL Cholesterol Calculated 186 mg/dL (<100); Potassium 4.2 mmol/L (3.3-5.1); Sodium 143 mmol/L (135-145); Total Protein 6.8 g/dL (6.5-8.0); Triglycerides 129 mg/dL (<150)
[2024-04-25 09:20] LABS: TSH reflex Free T4 1.82 uIU/mL (0.32-4.0)
== END 2024-04-25 07:26 | disposition home or self-care (01) ==
LOC: HO.XRAY 07:25
PROVIDERS: PCP Family Medicine; Visit Provider Family Medicine
DX: Z00.00 Encounter for general adult medical examination without abnormal findings (principal); Z86.15 Personal history of latent tuberculosis infection; Z12.5 Encounter for screening for malignant neoplasm of prostate; I10 Essential (primary) hypertension
CPT/HCPCS: 36415; 71046; 80053; 80061; 81003; 82043; 82570; 84153; 84443; 85025

== ENCOUNTER 2024-05-15 14:27 | Outpatient (AMB) | payer OTHER, SELFPAY ==
--- NOTE | 2024-05-15 14:38 | A.OFFVIS_ITS ---
Intake Visit Reasons: OV-Right RTC follow up Intake Note: This is a 59 year old male who presents for a right RTC follow up. He reports he is doing well and is participating in physical therapy at [facility]. He continues with his home exercise program as well. He denies any fevers or chills. Allergies No Known Allergies [No Known Allergies*] Allergy (Verified 05/15/24 14:39) Medication List - Last Reconciled 05/15/24 by Marleni Page RN aspirin 81 mg PO DAILY clotrimazole 1% 1 appl topical BID 2 weeks omeprazole 40 mg (2 x 20 mg) PO BID 90 days PFSH Medical History Borderline anemia Latent tuberculosis COVID-19 Sleep apnea Right shoulder pain GERD (gastroesophageal reflux disease) Surgical History History of esophagogastroduodenoscopy (EGD) Hx of colonoscopy History of orchiectomy Hx of tonsillectomy Family History Mother Colon cancer Maternal Aunt Celiac disease Other Other psychoactive substance abuse with psychoactive substance-induced mood disorder Social History (Updated 05/01/24 @ 16:36 by Shaina Simpson MA) Housing: House Are you a primary healthcare customer service to a significant other at home: No Do you presently have visiting nurse or other home services: No Patient Tobacco Use Status: Former Tobacco user Tobacco use type: Cigarette e-Cigarette/Vaping Use: Never Used Second Hand Smoke Exposure: Yes service: No Current occupational status: employed 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 Cognitive needs: No Hearing needs: No Vision needs: No Physical Exam Const Other: Well-nourished well-developed very friendly male awake alert and oriented x3 in no acute distress Extrem Other: Bilateral upper extremity examination shows good capillary refill, no skin lesions noted, normal sensation light touch Right shoulder examination shows almost full range of motion when compared to his left shoulder, minimal discomfort with resisted forward flexion, no discomfort with resisted internal or external rotation Assessment & Plan Assessment & Plan (1) Right shoulder pain: Code(s): M25.511 - Pain in right shoulder Category: Medical Plan Mr. Lynch continues to do well after undergoing right shoulder rotator cuff repair surgery on 12/14/2023. He will continue with his formal physical therapy for now. He will gradually transition to a home exercise program. I discussed with the patient the fact that his symptoms should continue to improve over the next few months. He will contact me prior to his follow-up appointment in 2-3 months should any questions or concerns arise. I spent 22 minutes in reviewing the patient's records and imaging studies, seeing the patient and documenting in the medical record. Coding Level of Care Code Est Pt Level 3 (73168) Complex EM visit Add On G2211 Diagnoses Right shoulder pain M25.511
== END 2024-05-15 14:53 | disposition home or self-care (01) ==
PROVIDERS: Visit Provider Orthopaedic Surgery
DX: M25.511 Pain in right shoulder (principal)
CPT/HCPCS: 99213

== ENCOUNTER → 2024-05-15 14:27 | Outpatient (BNVA) | payer OTHER, SELFPAY | PROVIDERS: Visit Provider Orthopaedic Surgery ==

== ENCOUNTER 2024-05-16 07:12 | Outpatient (REF) | payer OTHER, SELFPAY ==
[2024-05-16 09:00] LABS: Alanine Aminotransferase 31 U/L (0-40); Albumin Level 4.2 g/dL (3.5-5.0); Alkaline Phosphatase 49 U/L (39-117); Anion Gap 11 (12-20); Aspartate Amino Transferase 21 U/L (5-37); Bilirubin Total 0.7 mg/dL (0.0-1.0); Blood Urea Nitrogen 13 mg/dL (9-16); Calcium 9.4 mg/dL (8.4-10.2); Carbon Dioxide 28 mmol/L (22-29); Chloride 108 mmol/L (96-108); Cholesterol 253 mg/dL (<200); Estimated Glomerular Filt Rate > 60; Glucose Fasting 102 mg/dL (60-99); HDL Cholesterol 51 mg/dL (>40); LDL Cholesterol Calculated 172 mg/dL (<100); Potassium 3.8 mmol/L (3.3-5.1); Sodium 143 mmol/L (135-145); Total Protein 6.9 g/dL (6.5-8.0); Triglycerides 152 mg/dL (<150)
[2024-05-21 06:38] LABS: Lipoprotein A 115 nmol/L (<75)
== END 2024-05-16 07:13 | disposition home or self-care (01) ==
LOC: HO.LAB 07:12
PROVIDERS: PCP Family Medicine; Visit Provider Family Medicine
DX: Z00.00 Encounter for general adult medical examination without abnormal findings (principal); E78.00 Pure hypercholesterolemia, unspecified
CPT/HCPCS: 36415; 80053; 80061; 83695

== ENCOUNTER 2024-06-11 15:33 | Outpatient (REF) | payer OTHER, SELFPAY | END 2024-06-11 15:34 | disposition home or self-care (01) | LOC: HO.SH 15:33 | PROVIDERS: Visit Provider Family Medicine | DX: Z01.118 Encounter for examination of ears and hearing with other abnormal findings (principal); H93.293 Other abnormal auditory perceptions, bilateral | CPT/HCPCS: 92557; 92567 ==

== ENCOUNTER → 2024-06-13 12:14 | Outpatient (BNVA) | payer OTHER, SELFPAY | PROVIDERS: PCP Family Medicine; Visit Provider Family Medicine ==

== ENCOUNTER → 2024-06-13 12:14 | Outpatient (AMB) | payer OTHER, SELFPAY ==
--- NOTE | 2024-06-13 12:11 | A.OFFPC_ITS ---
Intake Visit Reasons: CHOLESTEROL FOLLOW UP Intake Note: f/u labs Allergies No Known Allergies [No Known Allergies*] Allergy (Verified 06/13/24 12:12) Tobacco use date assessed: 05/01/24 Dental Screening Dental Screen Date: 05/01/24 HPI HPI Comments History of Present Illness Details Documentation assistance for David Sotelo MD, was provided by Tank Steward,? Esl Professor on 06/13/2024 at 12:55 PM EST. I, Dr. Sotelo, have read, observed, and verified documentation. PFSH Medical History Borderline anemia Latent tuberculosis COVID-19 Sleep apnea Right shoulder pain GERD (gastroesophageal reflux disease) Surgical History History of esophagogastroduodenoscopy (EGD) Hx of colonoscopy History of orchiectomy Hx of tonsillectomy Family History Mother Colon cancer Maternal Aunt Celiac disease Other Other psychoactive substance abuse with psychoactive substance-induced mood disorder Social History (Updated 05/01/24 @ 16:36 by Shaina Simpson [facility]) Housing: House Are you a primary point of care technician to a significant other at home: No Do you presently have visiting nurse or other home services: No Patient Tobacco Use Status: Former Tobacco user Tobacco use type: Cigarette e-Cigarette/Vaping Use: Never Used Second Hand Smoke Exposure: Yes service: No Current occupational status: employed 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 Cognitive needs: No Hearing needs: No Vision needs: No Questionnaire Thrive Questionnaire Date Thrive assessed: 05/01/24 ENEIDA-7 AMB Questionnaire ENEIDA-7 Date ENEIDA - 7 assessed: 05/01/24 Source: Developed by Drs. Scot Forrest, Sharla Craig, Ayaan Garcia and colleagues, with an educational ollie from [employer]. Review of Systems Const Denies chills, Denies fatigue, Denies fever(s), Denies headache(s) and Denies weakness ENT Denies dizziness and Denies headache(s) Card Denies dyspnea Resp Denies cough, Denies dyspnea, Denies wheezing and Denies other (shortness of breath) Musc Denies numbness and Denies tingling Neuro Denies dizziness, Denies headache(s), Denies numbness, Denies tingling and Denies weakness Psych Denies anxiety and Denies depression Endo Denies fatigue Aller/Immun Denies wheezing Physical exam (Primary Care) Tobacco/Smoking Status: Tobacco use Status Tobacco use date assessed 05/01/24 06/13/24 12:13 Patient Tobacco Use Status Former Tobacco user 06/13/24 12:13 Tobacco use type Cigarette 06/13/24 12:13 e-Cigarette/Vaping Use Never Used 06/13/24 12:13 Thrive Assessment: Date of Thrive Assessment Date Thrive assessed 05/01/24 06/13/24 12:13 Telehealth Telehealth Telehealth Platform: Telephone Location of provider rendering services: practice address Location of patient: address on file Patient Identification confirmed using: Name, : Yes Telehealth method: voice only Patient verbally consented to treatment: Yes Patient verbally consented to billing insurance company: Yes Patient informed of any privacy concerns related to visit: Yes Coding Level of Care Code Tele Est Pt Level 2 (28382) Diagnoses Hyperlipidemia E78.5 Assessment & Plan Assessment & Plan (1) Hyperlipidemia: Code(s): E78.5 - Hyperlipidemia, unspecified Category: Medical Plan: Repeat?lipids?are?still?high?and?lipoprotein?a?is?moderately?high?as?well 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 Patient?says?she?will?check?a?panel?of?labs?which?he?will?pay?for?out -of-pocket?and?he?will?forward?the?labs?to?me. Will?review?these?with?him?at?next?visit?and?further?discuss?a?plan?to?get?his?c holesterol?levels?down. Meantime?I?recommended?lifestyle?changes?includin g?diet?lower?in?saturated?fats?and?cholesterol,?exercise?and?weight?loss
== END ==
LOC: HO.HMCFM 12:14
PROVIDERS: PCP Family Medicine; Visit Provider Family Medicine
DX: E78.5 Hyperlipidemia, unspecified (principal)

== ENCOUNTER 2024-08-07 14:16 | Outpatient (AMB) | payer OTHER, SELFPAY ==
[2024-08-07 14:23] VITALS: BMI 30.3
--- NOTE | 2024-08-07 14:23 | MHC.OFFVIS ---
Vital Signs 08/07/24 14:23 Height 5 ft 11 in Weight 217 lb BMI 30.3 Intake Visit Reasons: OV-Right RTC follow up Intake Note: Ryland is a 59 year old male who presents with complaints of mild intermittent discomfort in his right shoulder after undergoing right shoulder rotator cuff repair surgery on 12/14/2023. He continues to go to formal physical therapy. He also continues with his home stretching program. He reports mild intermittent discomfort in his shoulder. He states that his discomfort has improved when compared to his last visit. He denies any fevers or chills. Allergies No Known Allergies [No Known Allergies*] Allergy (Verified 08/07/24 14:23) Medication List - Last Reconciled 08/07/24 by Grant Lebron MD aspirin 81 mg PO DAILY clotrimazole 1% 1 appl topical BID 2 weeks omeprazole 40 mg (2 x 20 mg) PO BID 90 days PFS Medical History (Reviewed 12/27/23 @ 16:12 by Rosemary Alcocer [facility] [address]) Borderline anemia Latent tuberculosis COVID-19 Sleep apnea Right shoulder pain GERD (gastroesophageal reflux disease) Surgical History History of esophagogastroduodenoscopy (EGD) Hx of colonoscopy History of orchiectomy Hx of tonsillectomy Family History Mother Colon cancer Maternal Aunt Celiac disease Other Other psychoactive substance abuse with psychoactive substance-induced mood disorder Social History (Updated 05/01/24 @ 16:36 by Shaina Simpson [facility]) Housing: House Are you a primary hemodialysis patient care specialist to a significant other at home: No Do you presently have visiting nurse or other home services: No Patient Tobacco Use Status: Former Tobacco user Tobacco use type: Cigarette e-Cigarette/Vaping Use: Never Used Second Hand Smoke Exposure: Yes service: No Current occupational status: employed 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 Cognitive needs: No Hearing needs: No Vision needs: No Physical Exam Vital Signs: BMI result Body Mass Index 30.3 Const Other: Well-nourished well-developed very friendly male awake alert and oriented x3 in no acute distress Extrem Other: Bilateral upper extremity examination shows good capillary refill, no skin lesions noted, normal sensation light touch Right shoulder examination shows that the surgical incisions are well healed, no erythema, slightly decreased range of motion when compared to his left shoulder, 5/5 strength with supraspinatus testing, minimal discomfort with range of motion, no instability Assessment & Plan Assessment & Plan (1) Right shoulder pain: Code(s): M25.511 - Pain in right shoulder Category: Medical Plan Mr. Lynch continues to do well after undergoing right shoulder rotator cuff repair surgery on 12/14/2023. He will continue with his physical therapy exercises. The do's and don'ts of lifting were discussed at length with the patient. He will contact me prior to his follow-up appointment in 3 months should any questions or concerns arise. Feel free to call me at any time should questions regarding his orthopedic management arise. I spent 20 minutes in reviewing the patient's records and imaging studies, seeing the patient and documenting in the medical record. Coding Level of Care Code Est Pt Level 3 (17033) Complex EM visit Add On G2211 Diagnoses Right shoulder pain M25.511
== END 2024-08-07 14:51 | disposition home or self-care (01) ==
PROVIDERS: Visit Provider Orthopaedic Surgery
DX: M25.511 Pain in right shoulder (principal)
CPT/HCPCS: 99213

== ENCOUNTER 2024-11-27 14:25 | Outpatient (AMB) | payer OTHER, SELFPAY ==
--- NOTE | 2024-11-27 14:28 | MHC.OFFVIS ---
Vital Signs 11/27/24 14:31 Height 5 ft 11 in Weight 217 lb BMI 30.3 Intake Visit Reasons: OV-Right RTC 12/14/23 follow up Intake Note: Ryland is a 59 year old male who presents with complaints of mild intermittent discomfort in his right shoulder after undergoing right shoulder rotator cuff repair surgery on 12/14/2023. He continues with his stretching program. He does not take any medicines for his discomfort. Allergies No Known Allergies [No Known Allergies*] Allergy (Verified 11/27/24 14:34) Medication List - Last Reconciled 11/27/24 by Grant Lebron MD aspirin 81 mg PO DAILY clotrimazole 1% 1 appl topical BID 2 weeks omeprazole 40 mg (2 x 20 mg) PO BID 90 days PFSH Medical History Borderline anemia Latent tuberculosis COVID-19 Sleep apnea Right shoulder pain GERD (gastroesophageal reflux disease) Surgical History History of esophagogastroduodenoscopy (EGD) Hx of colonoscopy History of orchiectomy Hx of tonsillectomy Family History Mother Colon cancer Maternal Aunt Celiac disease Other Other psychoactive substance abuse with psychoactive substance-induced mood disorder Social History (Updated 05/01/24 @ 16:36 by Shaina Simpson [facility]) Housing: House Are you a primary anesthesiologist and critical care to a significant other at home: No Do you presently have visiting nurse or other home services: No Patient Tobacco Use Status: Former Tobacco user Tobacco use type: Cigarette e-Cigarette/Vaping Use: Never Used Second Hand Smoke Exposure: Yes service: No Current occupational status: employed 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 Cognitive needs: No Hearing needs: No Vision needs: No Physical Exam Vital Signs: BMI result Body Mass Index 30.3 Const Other: Well-nourished well-developed very friendly male awake alert and oriented x3 in no acute distress Extrem Other: Right shoulder examination shows slightly decreased range of motion when compared to his left shoulder, minimal discomfort with range of motion Assessment & Plan Assessment & Plan (1) Right shoulder pain: Code(s): M25.511 - Pain in right shoulder Category: Medical Plan Mr. Lynch continues to do well after undergoing right shoulder rotator cuff repair surgery on 12/14/2023. He will continue with his stretching program. The do's and don'ts of lifting were discussed at length with the patient. He will follow up with me on an as-needed basis should his symptoms worsen in any way. I spent 21 minutes in reviewing the patient's records and imaging studies, seeing the patient and documenting in the medical record. Coding Level of Care Code Est Pt Level 3 (03919) Complex EM visit Add On G2211 Diagnoses Right shoulder pain M25.511
[2024-11-27 14:31] VITALS: BMI 30.3
== END 2024-11-27 14:45 | disposition home or self-care (01) ==
LOC: HO.HOS 14:26
PROVIDERS: Visit Provider Orthopaedic Surgery
DX: M25.511 Pain in right shoulder (principal)
CPT/HCPCS: 99213

== ENCOUNTER 2025-06-05 08:18 | Outpatient (AMB) | payer OTHER, SELFPAY ==
--- NOTE | 2025-06-05 08:24 | MHC.PC.OV ---
Vital Signs 06/05/25 08:28 Height 5 ft 11 in Weight 221 lb 8 oz BMI 30.9 BP 116/62 Blood Pressure Location Rt brachial Position Sitting Respiration 14 Pulse 81 Pulse Source Pulse Oximeter Temp 98.1 F Temp Source Temporal Artery Scan Pulse Oximetry (%) 95 Oxygen Delivery Method Room Air Intake Visit Reasons: Pt requesting Clotrimazole Intake Note: Ryland presents in the office today for review of his labs. Patient needs refill of the clotrimazole cream. Allergies No Known Allergies (No Known Allergies*) Allergy (Verified 06/05/25 08:26) Medication List - Last Reconciled 06/05/25 by David Sotelo MD aspirin 81 mg PO DAILY cetirizine (Zyrtec) 10 mg PO DAILY PRN clotrimazole 1% 1 appl topical BID 2 weeks omeprazole 40 mg (2 x 20 mg) PO BID 90 days Tobacco use date assessed: 06/05/25 Dental Screening Dental Screen Date: 06/05/25 Did you have a dental visit in the last 12 months?: Yes Did you have a dental problem in the last 6 months where you did not have access to dental care?: No Was dental information given to patient?: Patient has dentist HPI Pt requesting Clotrimazole HPI Details 60 y/ male presents to review lipids, labs. Labs drawn 05/30/25. Reviewed labs with t. TC 237. Triglycerides 196. LDL 151. HDL 50. Borderline anemia. He has been using red yeast rice for about a year now for his lipids. He is requesting clotrimazole cream today for a yeast infection of his skin. [facility] Medical History Borderline anemia Latent tuberculosis COVID-19 Sleep apnea Right shoulder pain GERD (gastroesophageal reflux disease) Surgical History History of esophagogastroduodenoscopy (EGD) Hx of colonoscopy History of orchiectomy Hx of tonsillectomy Family History Mother Colon cancer Maternal Aunt Celiac disease Other Other psychoactive substance abuse with psychoactive substance-induced mood disorder Social History (Updated 06/05/25 @ 08:28 by Bettie Silverman [employer] Housing: House Are you a primary healthcare manager to a significant other at home: No Do you presently have visiting nurse or other home services: No Alcohol intake: never Patient Tobacco Use Status: Former Tobacco user Tobacco use type: Cigarette e-Cigarette/Vaping Use: Never Used Second Hand Smoke Exposure: Yes Use of substances other than those prescribed or required for medical reasons: No service: No Current occupational status: employed 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 Cognitive needs: No Hearing needs: No Vision needs: No Questionnaire PHQ-9 Over the last 2 weeks, how often have you been bothered by any of the following problems? 1. Little interest or pleasure in doing things: not at all 2. Feeling down, depressed, or hopeless: not at all 3. Trouble falling or staying asleep, or sleeping too much: not at all 4. Feeling tired or having little energy: several days 5. Poor appetite or overeating: not at all 6. Feeling bad about yourself - or that you are a failure or have let yourself or your family down: not at all 7. Trouble concentrating on things, such as reading the newspaper or watching television: not at all 8. Moving or speaking so slowly that other people could have noticed. Or the opposite - being so fidgety or restless that you have been moving around a lot more than usual: not at all 9. Thoughts that you would be better off or of hurting yourself in some way: not at all Total score: 1 Source: Developed by Drs. Scot Forrest, Sharla Craig, Ayaan Garcia and colleagues, with an educational ollie from [employer]. Thrive Questionnaire Date Thrive assessed: 06/02/25 I am a: Patient What is your living situation today?: I have a steady place to live Within the past 12 months, did the food you bought not last and you didn't have the money to get more?: Never true Within the past 12 months, did you worry whether your food would run out before you got money to buy more?: Never true Do you have trouble paying for medicines?: No Do you have trouble getting transportation to medical appointments?: No Do you have trouble paying your heating and electricity bill?: No Do you have trouble taking care of your child, family member or friend?: No Do you have trouble with day-to-day activities such as bathing, preparing meals, shopping, managing finances, etc.?: No Are you currently unemployed and looking for a job?: No Are you interested in more education?: No Please select the resources that you would like help with: None Currently or been in a relationship where the following occur: I choose not to answer THRIVE Score: 0 AUDIT C Alcohol Use Questionnaire (AUDIT-C) 1. How often do you have a drink containing alcohol?: Never 2. How many drinks containing alcohol do you have on a typical day when you are drinking?: 1 or 2 3. How often do you have six or more drinks on one occasion?: Never Total Score: 0 ENEIDA-7 AMB Questionnaire ENEIDA-7 Date ENEIDA - 7 assessed: 05/01/24 Feeling nervous, anxious, or on edge: 1 = Several days Not being able to stop or control worryin = Not at all Worrying too much about different things: 1 = Several days Trouble relaxin = Several days Being so restless that it is hard to sit still: 1 = Several days Becoming easily annoyed or irritable: 1 = Several days Feeling afraid as if something awful might happen: 0 = Not at all Total ENEIDA-7 score (0-4 normal; 5-9 mild; 10-14 moderate; 15-21 severe): 5 Source: Developed by Drs. Scot Forrest, Sharla Craig, Ayaan Garcia and colleagues, with an educational ollie from [employer]. Review of Systems Const Denies chills, Denies fatigue, Denies fever(s), Denies headache(s) and Denies weakness ENT Denies dizziness and Denies headache(s) Card Denies chest pain, Denies lightheadedness, Denies dyspnea and Denies other (Palpitations) Resp Denies cough, Denies dyspnea, Denies wheezing and Denies other ( shortness of breath) Musc Denies numbness and Denies tingling Neuro Denies dizziness, Denies headache(s), Denies numbness, Denies tingling, Denies paresthesias and Denies weakness Psych Denies anxiety and Denies depression Endo Denies fatigue Aller/Immun Denies wheezing Physical exam (Primary Care) Vital Signs: Last Vital Signs Temp 98.1 F 06/05/25 08:28 Pulse 81 06/05/25 08:28 Resp 14 06/05/25 08:28 BP 116/62 06/05/25 08:28 Pulse Ox 95 06/05/25 08:28 Oxygen Delivery Method Room Air 06/05/25 08:28 BMI result Body Mass Index 30.9 Tobacco/Smoking Status: Tobacco use Status Tobacco use date assessed 06/05/25 06/05/25 08:32 Patient Tobacco Use Status Former Tobacco user 06/05/25 08:28 Tobacco use type Cigarette 06/05/25 08:28 e-Cigarette/Vaping Use Never Used 06/05/25 08:28 PHQ-9: PHQ-9 Score PHQ-9: Total score 1 06/05/25 08:41 Thrive Assessment: Date of Thrive Assessment Date Thrive assessed 06/02/25 06/05/25 08:25 Currently or been in a relationship where the following occur: I choose not to answer Const General: no acute distress and well developed Nutritional Appearance: well nourished Orientation/consciousness: patient oriented x3 HENMT Head: Yes normocephalic and Yes atraumatic Eyes General: appearance normal, both eyes and all related structures Pupils: Equal, round and reactive pupils present EOM: EOMs intact bilaterally Resp Effort & Inspection: normal respiratory effort Auscultation: clear to auscultation bilaterally Cardio Rate: regular rate Rhythm: regular rhythm Heart sounds: S1 normal heart sound present, S2 normal heart sound present, no gallops, no murmurs and no rubs Neuro General: patient oriented x3 and gait normal Cranial nerves: Yes Equal, round and reactive pupils present Psych Affect: normal affect Coding Level of Care Code Est Pt Level 4 (27836) Diagnoses Hyperlipidemia E78.5 Yeast infection of the skin B37.2 Borderline anemia D64.9 Assessment & Plan Assessment & Plan (1) Hyperlipidemia: Code(s): E78.5 - Hyperlipidemia, unspecified Category: Medical Plan: Lipids are still high. Patient agrees to use statin medication Will recheck in about 3 months (2) Yeast infection of the skin: Code(s): B37.2 - Candidiasis of skin and nail Category: Medical Plan: Avoid excess moisture Can use clotrimazole cream (3) Borderline anemia: Code(s): D64.9 - Anemia, unspecified Category: Medical Plan: Very mild normocytic anemia Will recheck with further investigation at his next blood draw Orders: Orders Comprehensive [place]. Panel Fast Today Z00.00 - Encounter for general adult medical examination without abnormal findings Microalbumin, Random (w Creat) Today I10 - Essential (primary) hypertension TSH reflex Free T4 Today Z00.00 - Encounter for general adult medical examination without abnormal findings UA CC w/rflx Micro + Cult Today Z00.00 - Encounter for general adult medical examination without abnormal findings IRON PROFILE Today D64.9 - Anemia, unspecified Reticulocyte Count Today D64.9 - Anemia, unspecified Lipid Panel Today Z00.00 - Encounter for general adult medical examination without abnormal findings Complete Blood Count Auto Diff Today Z00.00 - Encounter for general adult medical examination without abnormal findings Medications: New atorvastatin (Lipitor) 20 mg PO BEDTIME 90 tabs 3RF 90 days
[2025-06-05 08:28] VITALS: BP 116/62; PULSE 81; RESP 14; TEMP 36.7; O2SAT 95; BMI 30.9
== END 2025-06-05 08:53 | disposition home or self-care (01) ==
LOC: HO.HMCFM 08:18
PROVIDERS: Visit Provider Family Medicine
DX: E78.5 Hyperlipidemia, unspecified (principal); B37.2 Candidiasis of skin and nail; D64.9 Anemia, unspecified